=== PATIENT | female | born 1940 | race Caucasian/White ===

== ENCOUNTER 2020-09-24 15:21 | Inpatient (IN) | payer MEDICARE ==
[~2020-09-24] VITALS: Ht 152.4 cm; Wt 60.9 kg
--- NOTE | 2020-09-24 18:58 | PHYS DOC ---
General Adult EDM: Chief Complaint: MECHANICAL FALL HPI: HPI: 80-year-old female past medical history Parkinson's, hypothyroid, hypertension, chronic back pain presents for evaluation of lower back pain and frequent falls. Over the last 1 month patient has had increasingly number of falls. She is fallen 5 times. Patient states when she stands up her bilateral legs give out. Patient states she has bilateral numbness and tingling of her lower extremities. Patient lower back pain is located midline in the lumbar region. Patient does not have any saddle anesthesia or loss of bowel or bladder. Patient required assistance when transferring from wheelchair to bed. Review of Systems: Review of Systems: Constitutional: Denies fever or chills. [] Eyes: Denies change in visual acuity. [] HENT: Denies nasal congestion or sore throat. [] Respiratory: Denies cough or shortness of breath. [] Cardiovascular: Denies chest pain or edema. [] GI: Denies abdominal pain, nausea, vomiting, bloody stools or diarrhea. [] : Denies dysuria. [] Musculoskeletal: POSITIVE back pain Integument: Denies rash. [] Neurologic: Denies headache, focal weakness POSITIVE PARESTHESIA. [] Endocrine: Denies polyuria or polydipsia. [] Lymphatic: Denies swollen glands. [] Psychiatric: Denies depression or anxiety. [] Heart Score: C/O Chest Pain: N/A Risk Factors: Risk Factors: DM, Current or recent (<one month) smoker, HTN, HLP, family history of CAD, obesity. Risk Scores: Score 0 - 3: 2.5% MACE over next 6 weeks - Discharge Home Score 4 - 6: 20.3% MACE over next 6 weeks - Admit for Clinical Observation Score 7 - 10: 72.7% MACE over next 6 weeks - Early Invasive Strategies Physical Exam: PE: Constitutional: Well developed, well nourished, no acute distress, non-toxic appearance. [] HENT: Normocephalic, atraumatic, bilateral external ears normal, oropharynx moist, no oral exudates, nose normal. [] Eyes: PERRLA, EOMI, conjunctiva normal, no discharge. [] Neck: Normal range of motion, no tenderness, supple, no stridor. [] Cardiovascular:Heart rate regular rhythm, no murmur [] Lungs & Thorax: Bilateral breath sounds clear to auscultation [] Abdomen: Bowel sounds normal, soft, no tenderness, no masses, no pulsatile masses. [] Skin: Warm, dry, no erythema, no rash. [] Back: tenderness to palpation lumbar L3-L4 midline, no CVA tenderness. [] Extremities: No tenderness, no cyanosis, no clubbing, ROM intact, no edema. [] Neurologic: Alert and oriented X 3, normal motor function, normal sensory function, no focal deficits noted. [] Psychologic: Affect normal, judgement normal, mood normal. [] EKG: EKG: [] Radiology/Procedures: Radiology/Procedures: [] Impression: IMPRESSION: 1. Negative CT thoracic and lumbar spine for acute traumatic injury. 2. Spondylotic change in the lower lumbar spine. 3. Infrarenal abdominal aortic aneurysm measuring up to 3.5 cm. Course & Med Decision Making: Course & Med Decision Making Pertinent Labs and Imaging studies reviewed. (See chart for details) []Patient admitted to hospital due to the inability to ambulated. Further evaluation of back pain and parasthesia. Will consult PT/OT Gordy Disclaimer: Gordy Disclaimer: This electronic medical record was generated, in whole or in part, using a voice recognition dictation system. Departure Departure Impression: Primary Impression: Back pain Additional Impressions: Frequent falls Parkinson disease Inability to walk Disposition: 09 ADMITTED INPATIENT Referrals: NO PCP (PCP) ABRAM PERKINS DO Sep 24, 2020 18:58
[2020-09-24 19:50] LABS: BASO # 0.1 x10^3/uL (0.0-0.2); BASO % 1 % (0-3); EOS # 0.3 x10^3/uL (0.0-0.7); EOS % 4 % (0-3); HEMATOCRIT 41.1 % (36.0-47.0); HEMOGLOBIN 14.2 g/dL (12.0-15.5); LYMPH # 1.3 x10^3/uL (1.0-4.8); LYMPH % 21 % (24-48); MEAN CORPUSCULAR HEMOGLOBIN 33 pg (25-35); MEAN CORPUSCULAR HGB CONC 34 g/dL (31-37); MEAN CORPUSCULAR VOLUME 95 fL (79-100); MONO # 0.7 x10^3/uL (0.0-1.1); MONO % 11 % (0-9); NEUT # 3.9 x10^3/uL (1.8-7.7); NEUT % 62 % (31-73); PLATELET COUNT 203 x10^3/uL (140-400); RED BLOOD COUNT 4.34 x10^6/uL (3.50-5.40); RED CELL DISTRIBUTION WIDTH 13.4 % (11.5-14.5); WHITE BLOOD COUNT 6.2 x10^3/uL (4.0-11.0)
--- NOTE | 2020-09-24 19:54 | RAD ---
Exam: CT the thoracic and lumbar spine without contrast INDICATION: Back pain TECHNIQUE: Sequential axial images through the thoracic and lumbar spine obtained without IV contrast . Sagittal and coronal reformatted images were reconstructed from the axial data and reviewed. Exposure: One or more of the following in the visualized dose reduction techniques were utilized for this examination: 1. Automated exposure control 2. Adjustment of the MA and/or KV according to patient size 3. Use of iterative of reconstructive technique Comparisons: None FINDINGS: Thoracic spine: Vertebral body heights and alignment are well-maintained. Fracture to the thoracic spine is not identified. Laminectomy changes noted in the lower thoracic spi ne. Mild spondylotic change in the thoracic spine with degenerative disc disease. Visualized paraspinal soft tissues are unremarkable. Lumbar spine: There is an S-shaped scoliotic curvature of the lumbar spine. Vertebral body heights are well-maintai emiliano. Fracture to the lumbar spine is not identified. Aneurysmal dilatation of the infrarenal abdominal aorta measuring up to 3.5 cm in diameter. The level spondylotic change in the lumbar spine with degenerative disc disease greatest at L4-L5 and L5-S1. Bilateral facet arthropathy is also noted in the lumbar spine. IMPRESSION: 1. Negative CT thoracic and lumbar spine for acute traumatic injury. 2. Spondylotic change in the lower lumbar spine. 3. Infrarenal abdominal aortic aneurysm measuring up to 3.5 cm. Electronically signed by: Mulugeta Hampton MD (09/24/2020 7:51 PM) ASPEN
[2020-09-24 19:59] LABS: CALCIUM 9.2 mg/dL (8.5-10.1); CREATININE 0.9 mg/dL (0.6-1.0); GFR 60.1; POTASSIUM 3.6 mmol/L (3.5-5.1)
[2020-09-24 20:05] LABS: ALBUMIN 3.7 g/dL (3.4-5.0); ALBUMIN/GLOBULIN RATIO 1.2 (1.0-1.7); TOTAL BILIRUBIN 0.4 mg/dL (0.2-1.0); TOTAL PROTEIN 6.7 g/dL (6.4-8.2)
[2020-09-24] MEDS ORDERED: HYDROcodone/APAP 5/325MG 1 TAB TABLET PO ONE (20:15)
[2020-09-24 20:25] VITALS: BP 189/87
--- NOTE | 2020-09-24 20:25 | NUR ---
The patient, MENG LOJA, 80 y/o, F admitted by VALARIE LOTT III, DO, admitted for back pain, falls and Parkinson to room 440. Patient oriented to room, bed, call light and POC.Call light in reach and Patient instructed on doctor order for bedrest and need to call for assistance with toileting/needs. Patient was given written information regarding hospital policies, unit procedures and contact persons. See admission assessment/documentation. Valuables were checked and Security called for lock up of valuables.
--- NOTE | 2020-09-24 20:36 | EKG ---
[facility] [address] [place] [address] Test Date: 2020-09-24 Test Time: 19:51:32 Pat Name: MENG LOJA Department: Room: Gender: F Supervisor Of Research: : 1940 Requested By: ABRAM PERKINS Order Number: [id number] Reading MD: Measurements Intervals Simpson Rate: 68 P: 125 TN: 180 QRS: -14 QRSD: 74 T: 24 QT: 368 QTc: 391 Interpretive Statements SINUS RHYTHM LEFTWARD AXIS R-S TRANSITION ZONE IN V LEADS DISPLACED TO THE RIGHT NO SPECIFIC ECG ABNORMALITIES RI6.02 No previous ECG available for comparison
--- NOTE | 2020-09-24 21:12 | HP ---
ADMIT DATE: 09/24/2020 CHIEF COMPLAINT: Falls and back pain. HISTORY OF PRESENT ILLNESS: The patient is a pleasant elderly female who has had a history of 6 different back surgeries. She has had 3 on her lumbar spine and 3 on her cervical spine. Now, she is having some falls with back pain. She also has Parkinson's diagnosis, but insists that she really does not have much symptoms with that. I discussed the case with ER physician. We are going to admit the patient and consult Neurosurgery. PAST MEDICAL HISTORY: Parkinson's. Six back surgeries. ALLERGIES: None. FAMILY HISTORY: Diabetes. SOCIAL HISTORY: She does not drink, smoke or take drugs. She worked at a [employer]. MEDICATIONS: Reviewed, please refer to the MRAD. REVIEW OF SYSTEMS: GENERAL: No history of weight change, weakness or fevers. SKIN: No bruising, hair changes or rashes. EYES: No blurred, double or loss of vision. NOSE AND THROAT: No history of nosebleeds, hoarseness or sore throat. HEART: No history of palpitations, chest pain or shortness of breath on exertion. LUNGS: Denies cough, hemoptysis, wheezing or shortness of breath. GASTROINTESTINAL: Denies changes in appetite, nausea, vomiting, diarrhea or constipation. GENITOURINARY: No history of frequency, urgency, hesitancy or nocturia. NEUROLOGIC: She complains of back pain and falls. PSYCHIATRIC: No history of panic, anxiety or depression. ENDOCRINE: No history of heat or cold intolerance, polyuria or polydipsia. EXTREMITIES: Denies muscle weakness, joint pain, pain on walking or stiffness. PHYSICAL EXAMINATION: VITALS: Within normal limits and are stable. GENERAL: No apparent distress. Alert and oriented. HEENT: Normal cephalic atraumatic, external auditory canals are patent EYES: Extraocular muscles are intact, pupils are equally round and reactive to light and accommodation MUSCULOSKELETAL: Well developed, well nourished, good range of motion ENDOCRINE: No thyromegaly was palpated LYMPHATICS: No cervical chain or axillary nodes were noted HEMATOPOIETIC: No bruising NECK: Supple, no JVD, no thyromegaly was noted. LUNGS: Clear to auscultation in all lung frost without rhonchi or wheezing. HEART: RRR, S1, S2 present. Peripheral pulses intact, no obvious murmurs were noted. ABDOMEN: Soft, nontender. Positive bowel sounds no organomegaly, normal bowel sounds. EXTREMITIES: Without any cyanosis, clubbing, or edema. Pedal pulses intact, Homans sign is negative. NEUROLOGIC: Normal speech, normal tone. A and O x 3, moves all extremities, no obvious focal deficits. PSYCHIATRIC: Normal affect, normal mood. Stable. SKIN: No ulcerations or rashes, good skin turgor, no jaundice. VASCULAR: Good capillary refill, neurovascular bundle appears to be intact. LABORATORY DATA: White count 6. ASSESSMENT AND PLAN: Back pain and falls. 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 The patient has been admitted. We will consult Neurosurgery. Home meds. Deep venous thrombosis prophylaxis. Full code. IV fluids, p.r.n. pain meds. EDEN/LILLIAM/SARAH DR: EDEN/david TID: [id number]
[2020-09-24 23:40] VITALS: BP 206/98
[2020-09-25] MEDS ORDERED: LEVO75TA5 PO (00:02)
[2020-09-25] MEDS ORDERED: CARB1TAB22 PO (00:02)
[2020-09-25] MEDS ORDERED: ROPI0.5T4 PO (00:02)
[2020-09-25] MEDS ORDERED: GABA300C18 PO (00:02)
[2020-09-25] MEDS ORDERED: METO50TA4 PO (00:03)
[2020-09-25] MEDS ORDERED: LISI-130 PO (00:03)
[2020-09-25] MEDS ORDERED: MECO10005 PO (00:04)
[2020-09-25] MEDS ORDERED: FOLI0.8T5 PO (00:05)
[2020-09-25] MEDS ORDERED: KRIL1CAP23 PO (00:07)
[2020-09-25] MEDS ORDERED: CHOL500021 PO (00:07)
[2020-09-25] MEDS ORDERED: NAPR220C4 PO (00:08)
[2020-09-25] MEDS ORDERED: ASPI81TA59 PO (00:09)
--- NOTE | 2020-09-25 00:41 | NUR ---
Answering service called questioning if Dr. Gonzalez had called back. Dr. Gonzalez connected directly from answering service and order received for pain medication.
[2020-09-25] MEDS: HYDROcodone/APAP 5/325MG 1 TAB TABLET PO PRN ×2 (00:50→21:01)
--- NOTE | 2020-09-25 01:24 | NUR ---
Patient states she takes 2 gabapentin , alleve and 1 carv/levo at night and requested call to doctor for order. Call to Dr. Gonzalez and order received.
[2020-09-25] MEDS ORDERED: NAPROXEN 250 MG TABLET PO ONE (01:30)
[2020-09-25] MEDS ORDERED: CARBIDOPA/LEVODOPA 25/100MG TABLET PO ONE (01:30)
[2020-09-25] MEDS ORDERED: GABAPENTIN 300 MG CAPSULE. PO ONE (01:30)
[2020-09-25 03:10] VITALS: BP 136/66
[2020-09-25 07:00] VITALS: BP 168/84
[2020-09-25] MEDS ORDERED: GABAPENTIN 300 MG CAPSULE. PO PRN (10:45)
--- NOTE | 2020-09-25 10:52 | NUR ---
SW following. Discussed with RN, pt from home alone, room air, regular diet. Dr. Weinstein following. PT/OT ordered. SW requested COVID swab for possible placement. SW will continue to follow.
[2020-09-25 11:00] VITALS: BP 152/82
[2020-09-25] MEDS: ASPIRIN CHEWABLE 81 MG TABLET. PO SCH (11:15)
[2020-09-25] MEDS: LISINOPRIL 20 MG TABLET PO SCH (11:15)
[2020-09-25] MEDS: METOPROLOL SUCC 24HR ER 50 MG TAB.ER.24H. PO SCH (11:15)
[2020-09-25] MEDS: LEVOTHYROXINE 75 MCG TABLET PO SCH (11:15)
--- NOTE | 2020-09-25 13:26 | PDOC ---
[employer] PROGRESS NOTE Date of Service DOS: DATE: 09/25/20 TIME: 13:24 Chief Complaint Chief Complaint Back pain and fall History of Present Illness History of Present Illness The patient is a pleasant elderly female who has had a history of 6 different back surgeries. She has had 3 on her lumbar spine and 3 on her cervical spine. Now, she is having some falls with back pain. She also has Parkinson's diagnosis, but insists that she really does not have much symptoms with that. I discussed the case with ER physician. We are going to admit the patient and consult Neurosurgery. 09/25/20 Patient seen and examined to bedside. Says back pain is well controlled currently she just feels very unsteady on her feet. Awaiting neurosurgery consult. PT OT ordered. Patient may need rehab on discharge. Home meds resumed. Vitals/I&O Vitals/I&O: Vital Signs Date Time Temp Pulse Resp B/P (MAP) Pulse Ox O2 Delivery O2 Flow Rate FiO2 09/25/20 11:15 78 168/84 09/25/20 11:00 98.4 18 95 Room Air 98.4 I & O 09/24/20 09/24/20 09/25/20 15:00 23:00 07:00 Intake Total 640 ml Balance 640 ml Physical Exam General: Alert, Oriented X3, Cooperative Heart: Regular rate, Normal S1, Normal S2 Lungs: Clear Abdomen: Normal bowel sounds, Soft Extremities: No clubbing, No edema Skin: No rashes, No significant lesion Labs Labs: Laboratory Tests Test 09/24/20 19:37 White Blood Count 6.2 x10^3/uL (4.0-11.0) Red Blood Count 4.34 x10^6/uL (3.50-5.40) Hemoglobin 14.2 g/dL (12.0-15.5) Hematocrit 41.1 % (36.0-47.0) Mean Corpuscular Volume 95 fL (79-100) Mean Corpuscular Hemoglobin 33 pg (25-35) Mean Corpuscular Hemoglobin Concent 34 g/dL (31-37) Red Cell Distribution Width 13.4 % (11.5-14.5) Platelet Count 203 x10^3/uL (140-400) Neutrophils (%) (Auto) 62 % (31-73) Lymphocytes (%) (Auto) 21 % (24-48) Monocytes (%) (Auto) 11 % (0-9) Eosinophils (%) (Auto) 4 % (0-3) Basophils (%) (Auto) 1 % (0-3) Neutrophils # (Auto) 3.9 x10^3/uL (1.8-7.7) Lymphocytes # (Auto) 1.3 x10^3/uL (1.0-4.8) Monocytes # (Auto) 0.7 x10^3/uL (0.0-1.1) Eosinophils # (Auto) 0.3 x10^3/uL (0.0-0.7) Basophils # (Auto) 0.1 x10^3/uL (0.0-0.2) Sodium Level 143 mmol/L (136-145) Potassium Level 3.6 mmol/L (3.5-5.1) Chloride Level 104 mmol/L (98-107) Carbon Dioxide Level 32 mmol/L (21-32) Anion Gap 7 (6-14) Blood Urea Nitrogen 17 mg/dL (7-20) Creatinine 0.9 mg/dL (0.6-1.0) Estimated GFR (Cockcroft-Gault) 60.1 BUN/Creatinine Ratio 19 (6-20) Glucose Level 125 mg/dL (70-99) Calcium Level 9.2 mg/dL (8.5-10.1) Total Bilirubin 0.4 mg/dL (0.2-1.0) Aspartate Amino Transf (AST/SGOT) 14 U/L (15-37) Alanine Aminotransferase (ALT/SGPT) 10 U/L (14-59) Alkaline Phosphatase 68 U/L (46-116) Troponin I Quantitative < 0.017 ng/mL (0.000-0.055) Total Protein 6.7 g/dL (6.4-8.2) Albumin 3.7 g/dL (3.4-5.0) Albumin/Globulin Ratio 1.2 (1.0-1.7) Assessment and Plan Assessmemt and Plan Problems Medical Problems: (1) Inability to walk Status: Acute Back pain and falls. 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 The patient has been admitted. We will consult Neurosurgery. Home meds. Deep venous thrombosis prophylaxis. Full code. IV fluids, p.r.n. pain meds Comment Review of Relevant I have reviewed the following items elizabeth (where applicable) has been applied. Medications: Current Medications Medications (Trade) Dose Ordered Sig/Sury Route PRN Reason Start Time Stop Time Status Last Admin Dose Admin Acetaminophen/ Hydrocodone Bitart (Lortab 5/325) 1 tab 1X ONCE PO 09/24/20 20:15 09/24/20 20:16 DC 09/24/20 20:23 Acetaminophen/ Hydrocodone Bitart (Lortab 5/325) 1 tab PRN Q4HRS PRN PO PAIN 09/25/20 00:45 09/25/20 00:50 Naproxen (Naprosyn) 250 mg 1X ONCE PO 09/25/20 01:30 09/25/20 01:31 DC 09/25/20 01:34 Gabapentin (Neurontin) 600 mg 1X ONCE PO 09/25/20 01:30 09/25/20 01:31 DC 09/25/20 01:34 Carbidopa/Levodopa (Sinemet 25/100) 1 tab 1X ONCE PO 09/25/20 01:30 09/25/20 01:31 DC 09/25/20 01:34 Aspirin (Aspirin Chewable) 81 mg DAILY PO 09/25/20 11:00 09/25/20 11:15 Gabapentin (Neurontin) 300 mg 5XDAY PRN PO neuropathy 09/25/20 10:45 09/25/20 11:15 Levothyroxine Sodium (Synthroid) 75 mcg DAILY06 PO 09/25/20 11:00 09/25/20 11:15 Lisinopril (Prinivil) 40 mg DAILY PO 09/25/20 11:00 09/25/20 11:15 Metoprolol Succinate (Toprol Xl) 50 mg DAILY PO 09/25/20 11:00 09/25/20 11:15 Justifications for Admission Other Justification JANE PHILLIPS MD Sep 25, 2020 13:26
[2020-09-25] MEDS: rOPINIRole 0.25 MG TABLET. PO SCH ×2 (13:56→21:01)
[2020-09-25] MEDS: CARBIDOPA/LEVODOPA 25/100MG TABLET PO SCH ×3 (13:56→21:01)
[2020-09-25 15:00] VITALS: BP 150/68
--- NOTE | 2020-09-25 17:41 | PDOC ---
Provider Note Date of Service: DATE: 09/25/20 TIME: 17:36 Provider Note Patient seen and examined consulted for back pain, falls 6 previous spine surgeries, most recently in 1999 at [facility], cervical, thoracic and lumbar surgeries she reports that her legs give out when she tries to walk, she denies upper extremity involvement the current problem began less than 1 month ago on exam, no focal weakness, strength 4/5 in LE, reflexes brisk, sensation intact reviewed thoracic and lumbar CT will obtain lumbar and thoracic MRI Justifications for Admission Other Justification BRI RODRIGUEZ MD Sep 25, 2020 17:41
[2020-09-25] MEDS: NAPROXEN 250 MG TABLET PO SCH (18:02)
[2020-09-25 19:00] VITALS: BP 146/62
[2020-09-25] MEDS: GABAPENTIN 300 MG CAPSULE. PO SCH (21:01)
[2020-09-25] MEDS: NICOTINE 21MG PATCH. TD PRN (21:04)
[2020-09-25 22:52] VITALS: BP 155/61
[2020-09-26 02:59] VITALS: BP 130/62
[2020-09-26] MEDS: CARBIDOPA/LEVODOPA 25/100MG TABLET PO SCH ×5 (06:04→20:45)
[2020-09-26] MEDS: LEVOTHYROXINE 75 MCG TABLET PO SCH (06:04)
[2020-09-26] MEDS: GABAPENTIN 300 MG CAPSULE. PO PRN ×3 (06:06→17:12)
[2020-09-26 06:19] VITALS: BP 114/88
--- NOTE | 2020-09-26 06:31 | NUR ---
Patient requested schedule change to match home administration times for Carbidopa/Levodopa tablet(0300,0700,1200,1700,2200); pharmacist notified and changes successful. 0700 Carbidopa/Levodopa scheduled for this AM non-administered as dose already administered at 0605.
[2020-09-26] MEDS: LISINOPRIL 20 MG TABLET PO SCH (09:39)
[2020-09-26] MEDS: rOPINIRole 0.25 MG TABLET. PO SCH ×3 (09:40→20:43)
[2020-09-26] MEDS: NAPROXEN 250 MG TABLET PO SCH ×2 (09:40→17:12)
[2020-09-26] MEDS: METOPROLOL SUCC 24HR ER 50 MG TAB.ER.24H. PO SCH (09:40)
[2020-09-26] MEDS: ASPIRIN CHEWABLE 81 MG TABLET. PO SCH (09:40)
[2020-09-26] MEDS: NICOTINE 21MG PATCH. TD PRN (09:41)
--- NOTE | 2020-09-26 10:48 | CONS ---
DATE OF CONSULTATION: 09/26/2020 REASON FOR CONSULTATION: I saw her at the request of Dr. Gonzalez for rehab evaluation. HISTORY OF PRESENT ILLNESS: This is an 80-year-old female with 6 surgeries on her neck and back, 3 on the lumbar spine, and 3 on cervical and thoracic area, also with a diagnosis of Parkinson's disease without much symptoms from Parkinson's disease. The patient had left back surgery done a few years ago about [address] Prakash at [facility]. The patient was seen by another surgeon since then and they felt and stated they could not do anything much. She moved to [facility] where her care provider, her nephew lives close by. The patient usually walks using a roller walker and takes care of her house including garden. She fell first on 09/13 while trying to get out of the car and she sprained her right hip and left ankle, but since then she has been using a roller walker and walking. Before that she did not even use a roller walker all the time. Again, she fell on 09/22. Initial fall is on 09/13, second fall on 09/21, third fall and afterwards she fell several times on 09/22. Since then, she is having difficulty to stand up and walk as her legs give away. She feels wobbly sensation and numbness in her feet. She denies any trouble with her bowel or bladder control. The patient admits minimal back pain at present time. The patient had family history of diabetes mellitus. ALLERGIES: She is not known allergic to any medication. PHYSICAL EXAMINATION: NEUROLOGIC: Today revealed an elderly female. She is alert, oriented to time, place, person and circumstance, follows commands appropriately. Moves all 4 extremities voluntarily where she had 4/5 to 4+/5 grade muscle strength. Deep tendon reflexes are brisk in her knees and ankles. She had pain free range of motion of all 4 extremity joints. She had minimal tenderness to palpation over left sacroiliac joint area and straight leg raising test is negative bilaterally. No significant tenderness to palpation. No cervical, thoracic or lumbar spine or adjoining paraspinal muscles or over trochanteric bursa area. The patient is independent with bed mobility and she requires standby assistance for transfers and she feels like her legs are wobbly and gives away while trying to walk. She made a few steps using a wide-based gait, taking small steps with may cueing on level surface. She states that she is mainly putting weight on her hands. Her skin is intact at this time. She seemed to have equal perception of touch and pinprick sensation bilaterally. 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 RECOMMENDATIONS: Agree with the plans for MRI scan and await Dr. Weinstein's decision about decompression laminectomy to help with her spinal stenosis as apparently before the fall on 09/21 and 09/22. She had been walking without any significant difficulty. Dr. Gonzalez, I appreciate asking me to participate in the care of this interesting patient. I will be glad to see her for followup with you on as needed basis. HERNÁN DR: Sanju TID: [id number] GOSIA
[2020-09-26 11:00] VITALS: BP 121/61
--- NOTE | 2020-09-26 12:48 | NUR ---
SW following. Discussed with RN, pt from home alone, room air. Therapy recommending SNF. SW met with pt, pt declining SNF at this time, she wants to go home at discharge with home health. Pt identified her cousin as support for her at home. Tiff Perez RN notified of referral. RN notified. CL will continue to follow. Addendum: 09/26/20 at 1515 by NAYELI SMALLWOOD Tiff Perez RN met with pt, pt does not have PCP, next appointment in October. Pt aware she cannot have home health with no PCP - pt will have PCP arrange home health after appointment.
--- NOTE | 2020-09-26 13:48 | PDOC ---
[employer] PROGRESS NOTE Date of Service DOS: DATE: 09/26/20 TIME: 13:46 Chief Complaint Chief Complaint Back pain and fall History of Present Illness History of Present Illness The patient is a pleasant elderly female who has had a history of 6 different back surgeries. She has had 3 on her lumbar spine and 3 on her cervical spine. Now, she is having some falls with back pain. She also has Parkinson's diagnosis, but insists that she really does not have much symptoms with that. I discussed the case with ER physician. We are going to admit the patient and consult Neurosurgery. 09/25/20 Patient seen and examined to bedside. Says back pain is well controlled currently she just feels very unsteady on her feet. Awaiting neurosurgery consult. PT OT ordered. Patient may need rehab on discharge. Home meds resumed. 09/26/20 Patient seen and examined at bedside. No major complaints this morning. Neurosurgery recommending MRI evaluation, patient agreeable. PT OT ordered. Plan of care discussed with bedside nurse. Vitals/I&O Vitals/I&O: Vital Signs Date Time Temp Pulse Resp B/P (MAP) Pulse Ox O2 Delivery O2 Flow Rate FiO2 09/26/20 11:00 97.7 72 18 121/61 (81) 94 Room Air 97.7 I & O 09/25/20 09/25/20 09/26/20 15:00 23:00 07:00 Intake Total 240 ml 200 ml Balance 240 ml 200 ml Physical Exam General: Alert, Oriented X3, Cooperative Heart: Regular rate, Normal S1, Normal S2 Lungs: Clear Abdomen: Normal bowel sounds, Soft Extremities: No clubbing, No edema Skin: No rashes, No significant lesion Assessment and Plan Assessmemt and Plan Problems Medical Problems: (1) Inability to walk Status: Acute Back pain and falls. 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 The patient has been admitted. We will consult Neurosurgery. Home meds. Deep venous thrombosis prophylaxis. Full code. IV fluids, p.r.n. pain meds MRIs ordered PT OT Dispo pending MRI results and neurosurgery recommendation. Comment Review of Relevant I have reviewed the following items elizabeth (where applicable) has been applied. Medications: Current Medications Medications (Trade) Dose Ordered Sig/Sury Route PRN Reason Start Time Stop Time Status Last Admin Dose Admin Carbidopa/Levodopa (Sinemet 25/100) 1 tab 5XDAY PO 09/25/20 14:00 09/26/20 06:16 DC 09/26/20 06:04 Ropinirole HCl (Requip) 0.5 mg TID PO 09/25/20 14:00 09/26/20 09:40 Gabapentin (Neurontin) 600 mg QHS PO 09/25/20 21:00 09/25/20 21:01 Naproxen (Naprosyn) 250 mg BIDWMEALS PO 09/25/20 17:00 09/26/20 09:40 Nicotine (Nicoderm Cq 21mg) 1 patch PRN DAILY PRN TD SMOKING CESSATION 09/25/20 18:30 09/26/20 09:41 Carbidopa/Levodopa (Sinemet 25/100) 1 tab 0300,0700,1200,1700,2100 PO 09/26/20 07:00 09/26/20 12:06 Justifications for Admission Other Justification JANE PHILLIPS MD Sep 26, 2020 13:48
--- NOTE | 2020-09-26 14:43 | PDOC ---
PROGRESS NOTES Date of Service DATE: 09/26/20 TIME: 14:41 Subjective Subjective no new complaints back pain, legs feel weak when she gets up to walk Objective Objective Vital Signs Date Time Temp Pulse Resp B/P (MAP) Pulse Ox O2 Delivery O2 Flow Rate FiO2 09/26/20 11:00 97.7 72 18 121/61 (81) 94 Room Air 97.7 Intake and Output 09/26/20 07:00 Intake Total 440 ml Balance 440 ml Intake Oral 440 ml # Voids 5 # Bowel Movements 1 Physical Exam Neuro: Other (no change in neuro exam) Assessment Assessment Problems Medical Problems: (1) Inability to walk Status: Acute Plan Plan of Care thoracic and lumbar MRI pending will follow Comment Review of Relevant I have reviewed the following items elizabeth (where applicable) has been applied. Labs Laboratory Tests Test 09/24/20 19:37 White Blood Count 6.2 x10^3/uL (4.0-11.0) Red Blood Count 4.34 x10^6/uL (3.50-5.40) Hemoglobin 14.2 g/dL (12.0-15.5) Hematocrit 41.1 % (36.0-47.0) Mean Corpuscular Volume 95 fL (79-100) Mean Corpuscular Hemoglobin 33 pg (25-35) Mean Corpuscular Hemoglobin Concent 34 g/dL (31-37) Red Cell Distribution Width 13.4 % (11.5-14.5) Platelet Count 203 x10^3/uL (140-400) Neutrophils (%) (Auto) 62 % (31-73) Lymphocytes (%) (Auto) 21 % (24-48) Monocytes (%) (Auto) 11 % (0-9) Eosinophils (%) (Auto) 4 % (0-3) Basophils (%) (Auto) 1 % (0-3) Neutrophils # (Auto) 3.9 x10^3/uL (1.8-7.7) Lymphocytes # (Auto) 1.3 x10^3/uL (1.0-4.8) Monocytes # (Auto) 0.7 x10^3/uL (0.0-1.1) Eosinophils # (Auto) 0.3 x10^3/uL (0.0-0.7) Basophils # (Auto) 0.1 x10^3/uL (0.0-0.2) Sodium Level 143 mmol/L (136-145) Potassium Level 3.6 mmol/L (3.5-5.1) Chloride Level 104 mmol/L (98-107) Carbon Dioxide Level 32 mmol/L (21-32) Anion Gap 7 (6-14) Blood Urea Nitrogen 17 mg/dL (7-20) Creatinine 0.9 mg/dL (0.6-1.0) Estimated GFR (Cockcroft-Gault) 60.1 BUN/Creatinine Ratio 19 (6-20) Glucose Level 125 mg/dL (70-99) Calcium Level 9.2 mg/dL (8.5-10.1) Total Bilirubin 0.4 mg/dL (0.2-1.0) Aspartate Amino Transf (AST/SGOT) 14 U/L (15-37) Alanine Aminotransferase (ALT/SGPT) 10 U/L (14-59) Alkaline Phosphatase 68 U/L (46-116) Troponin I Quantitative < 0.017 ng/mL (0.000-0.055) Total Protein 6.7 g/dL (6.4-8.2) Albumin 3.7 g/dL (3.4-5.0) Albumin/Globulin Ratio 1.2 (1.0-1.7) Medications Current Medications Acetaminophen/ Hydrocodone Bitart (Lortab 5/325) 1 tab 1X ONCE PO Last administered on 09/24/20at 20:23; Start 09/24/20 at 20:15; Stop 09/24/20 at 20:16; Status DC Acetaminophen/ Hydrocodone Bitart (Lortab 5/325) 1 tab PRN Q4HRS PRN PO PAIN Last administered on 09/25/20at 21:01; Start 09/25/20 at 00:45 Naproxen (Naprosyn) 250 mg 1X ONCE PO Last administered on 09/25/20at 01:34; Start 09/25/20 at 01:30; Stop 09/25/20 at 01:31; Status DC Gabapentin (Neurontin) 600 mg 1X ONCE PO Last administered on 09/25/20at 01:34; Start 09/25/20 at 01:30; Stop 09/25/20 at 01:31; Status DC Carbidopa/Levodopa (Sinemet 25/100) 1 tab 1X ONCE PO Last administered on 09/25/20 01:34; Start 09/25/20 at 01:30; Stop 09/25/20 at 01:31; Status DC Aspirin (Aspirin Chewable) 81 mg DAILY PO Last administered on 09/26/20 09:40; Start 09/25/20 at 11:00 Carbidopa/Levodopa (Sinemet 25/100) 1 tab 5XDAY PO Last administered on 09/26/20at 06:04; Start 09/25/20 at 14:00; Stop 09/26/20 at 06:16; Status DC Gabapentin (Neurontin) 300 mg 5XDAY PRN PO neuropathy Last administered on 09/25/20 11:15; Start 09/25/20 at 10:45; Stop 09/25/20 at 13:29; Status DC Levothyroxine Sodium (Synthroid) 75 mcg DAILY06 PO Last administered on 09/26/20 06:04; Start 09/25/20 at 11:00 Lisinopril (Prinivil) 40 mg DAILY PO Last administered on 09/26/20 09:39; Start 09/25/20 at 11:00 Metoprolol Succinate (Toprol Xl) 50 mg DAILY PO Last administered on 09/26/20 09:40; Start 09/25/20 at 11:00 Ropinirole HCl (Requip) 0.5 mg TID PO Last administered on 09/26/20 09:40; Start 09/25/20 at 14:00 Gabapentin (Neurontin) 300 mg PRN Q6HRS PRN PO NEUROPATHY SYMPTOMS Last administered on 09/26/20 12:06; Start 09/25/20 at 13:30 Gabapentin (Neurontin) 600 mg QHS PO Last administered on 09/25/20 21:01; Start 09/25/20 at 21:00 Naproxen (Naprosyn) 250 mg BIDWMEALS PO Last administered on 09/26/20 09:40; Start 09/25/20 at 17:00 Nicotine (Nicoderm Cq 21mg) 1 patch PRN DAILY PRN TD SMOKING CESSATION Last administered on 09/26/20 09:41; Start 09/25/20 at 18:30 Carbidopa/Levodopa (Sinemet 25/100) 1 tab 0300,0700,1200,1700,2100 PO Last administered on 09/26/20at 12:06; Start 09/26/20 at 07:00 Active Scripts Active Reported Children's Aspirin (Aspirin) 81 Mg Tab.chew 1 Tab PO DAILY 30 Days Aleve (Naproxen Sodium) 220 Mg Capsule 220 Mg PO BID D3-50 (Cholecalciferol (Vitamin D3)) 50,000 Unit Capsule 2,000 Unit PO DAILY Megared [place]-3 Krill Oil Sfgl (Krill/Om-3/Dha/Epa/Phospho/Ast) 1 Each Capsule 1 Cap PO DAILY 30 Days Folic Acid 0.8 Mg Tablet 0.8 Mg PO DAILY B12 Active (Mecobalamin) 1,000 Mcg Tab.chew 500 Mcg PO DAILY Toprol XL (Metoprolol Succinate) 50 Mg Tab.er.24h 50 Mg PO DAILY Lisinopril 40 Mg Tablet 1 Tab PO DAILY Levothyroxine Sodium 75 Mcg Tablet 1 Tab PO DAILY Gabapentin (Gabapentin) 300 Mg Capsule 300 Mg PO 5XDAY PRN Carbidopa-Levodopa 25-100 Tab (Carbidopa/Levodopa) 1 Each Tablet 1 Tab PO 5XDAY 30 Days Ropinirole Hcl 0.5 Mg Tablet 0.5 Mg PO TID Vitals/I & O Vital Sign - Last 24 Hours 09/25/20 09/25/20 09/25/20 09/25/20 15:00 19:00 20:00 21:01 Temp 98.1 97.5 98.1 97.5 Pulse 78 81 Resp 18 18 16 B/P (MAP) 150/68 (95) 146/62 (90) Pulse Ox 93 91 91 O2 Delivery Room Air Room Air Room Air Room Air 09/25/20 09/25/20 09/26/20 09/26/20 21:31 22:52 02:59 06:19 Temp 97.9 97.6 97.9 97.9 97.6 97.9 Pulse 69 79 79 Resp 14 18 18 16 B/P (MAP) 155/61 (92) 130/62 (84) 114/88 (97) Pulse Ox 91 90 92 91 O2 Delivery Room Air Room Air Room Air Room Air 09/26/20 09/26/20 09/26/20 09/26/20 07:50 09:39 09:40 11:00 Temp 97.7 97.7 Pulse 79 79 72 Resp 18 B/P (MAP) 114/88 114/88 121/61 (81) Pulse Ox 94 O2 Delivery Room Air Room Air Intake and Output 09/25/20 09/25/20 09/26/20 15:00 23:00 07:00 Intake Total 240 ml 200 ml Balance 240 ml 200 ml Justifications for Admission Other Justification YULISSA FOFANA PATIENT ACCESS ASSOCIATE Sep 26, 2020 14:43
[2020-09-26 15:00] VITALS: BP 131/74
[2020-09-26] MEDS: HYDROcodone/APAP 5/325MG 1 TAB TABLET PO PRN ×2 (17:35→23:30)
--- NOTE | 2020-09-26 17:54 | RAD ---
MRI THORACIC SPINE WO, MR LUMBAR SPINE WO -[id number] Date: 09/26/2020 3:34 PM Indication: lower extremity weakness, back pain Comparison: CT 09/24/2020. Technique: Multi-planar multi-weighted magnetic resonance imaging of the thoracic and lumbar spine wa s performed without intravenous contrast using the standard lumbar spine protocol. FINDINGS: S-shaped thoracolumbar curvature. No acute fracture. Advanced multilevel degenerative disc desiccatio n and disc height loss. Multilevel sclerotic degenerative endplate changes. Abnormal ill-defined spinal cord signal at T9-T10. Additional abnormal spinal cord signal with volume loss at T10-11 consistent with myelomalacia. Prior posterior decompression at T10-11. The conus term inates at a normal level. No clumping of intrathecal nerve roots. Infrarenal abdominal aortic aneurysm measuring up to 4.5 cm. Thoracic: T1-2: Mild facet arthropathy. No spinal canal stenosis. Moderate right neural foraminal narrowing. T2-3: Disc bulge. Mild facet arthropathy. Severe right and moderate left neural foraminal narrowing. Mild spinal canal stenosis. T3-4: Disc bulge. Mild right facet arthropathy. Moderate right and mild left neural foraminal narrowi ng. Mild spinal canal stenosis. T4-5: Disc bulge. Moderate facet arthropathy. Moderate right neural foraminal narrowing. No spinal ca nal stenosis T5-6: Mild right facet arthropathy. No spinal canal stenosis or neural foraminal narrowing. T6-7: Mild left facet arthropathy. Mild left neural foraminal narrowing. No spinal canal stenosis. T7-8: Disc bulge. No spinal canal stenosis. Mild left neural foraminal narrowing. T8-9: Disc bulge. Mild facet arthropathy. Ligamentum flavum thickening. Moderate to severe spinal can al stenosis with AP dimension of 6 mm. Mild bilateral neural foraminal narrowing. T9-10: Disc bulge. Moderate facet arthropathy. Ligamental flavum thickening. Severe spinal canal sten osis with AP dimension of 5 mm. Moderate bilateral neural foraminal narrowing. T10-11: Posterior decompression. No spinal canal stenosis. Mild right and moderate left facet arthrop athy. Mild right and moderate left neural foraminal narrowing. T11-12: Disc bulge. Moderate facet arthropathy. Mild spinal canal stenosis. Mild neural foraminal jelly rowing. Lumbar: T12-L1: Disc bulge. Severe right and moderate left facet arthropathy. Mild to moderate spinal canal s tenosis. Moderate right and mild left neural foraminal narrowing. L1-L2: Disc bulge. Moderate facet arthropathy. Moderate right and mild left neural foraminal narrowin g. Mild spinal canal stenosis. L2-L3: Disc bulge. Moderate facet arthropathy. Mild spinal stenosis. Mild to moderate bilateral neura l foraminal narrowing. L3-L4: Posterior decompression. Moderate to severe facet arthropathy. No significant spinal stenosis. Mild lateral recess narrowing. Mild bilateral neural foraminal narrowing. L4-L5: Posterior decompression. Severe facet arthropathy. Moderate spinal stenosis and left greater t [place] right lateral recess narrowing. Moderate bilateral neural foraminal narrowing. L5-S1: Disc bulge. Severe facet arthropathy. Moderate spinal stenosis. Severe bilateral neural forami nal narrowing. IMPRESSION: 1. Advanced thoracolumbar spondylosis, detailed level by level above. Of note, there is severe spinal canal stenosis at T9-T10 with abnormal spinal cord signal, likely edema. Neurosurgical consultation is recommended. 2. Infrarenal abdominal aortic aneurysm measuring 4.5 cm. FOR INTERNAL CODING PURPOSES Critical result: Findings and recommendations discussed with the patient's nurse at 09/26/2020 5:49 PM. RESULT CODE: (C) Electronically signed by: Nicanor Ventura MD (09/26/2020 5:51 PM) KATER[place]
[2020-09-26 19:00] VITALS: BP 185/88
[2020-09-26] MEDS: GABAPENTIN 300 MG CAPSULE. PO SCH (20:43)
[2020-09-26 23:00] VITALS: BP 170/73
[2020-09-26] MEDS ORDERED: MORPHINE SULFATE 2 MG/ML INJ. IVP PRN (23:45)
[2020-09-27] VITALS (7 sets, daily range): BP systolic 133–199; BP diastolic 53–81
[2020-09-27] MEDS: CARBIDOPA/LEVODOPA 25/100MG TABLET PO SCH ×5 (02:10→21:12)
[2020-09-27] MEDS: LEVOTHYROXINE 75 MCG TABLET PO SCH (05:43)
[2020-09-27] MEDS: METOPROLOL SUCC 24HR ER 50 MG TAB.ER.24H. PO SCH (07:56)
[2020-09-27] MEDS: ASPIRIN CHEWABLE 81 MG TABLET. PO SCH (07:56)
[2020-09-27] MEDS: rOPINIRole 0.25 MG TABLET. PO SCH ×3 (07:56→21:12)
[2020-09-27] MEDS: NAPROXEN 250 MG TABLET PO SCH ×2 (07:57→17:15)
[2020-09-27] MEDS: LISINOPRIL 20 MG TABLET PO SCH (07:57)
--- NOTE | 2020-09-27 09:31 | PDOC ---
PROGRESS NOTES Date of Service DATE: 09/27/20 TIME: 09:23 Subjective Subjective No new complaints. Objective Objective Vital Signs Date Time Temp Pulse Resp B/P (MAP) Pulse Ox O2 Delivery O2 Flow Rate FiO2 09/27/20 07:57 69 162/65 09/27/20 07:00 97.6 18 99 Nasal Cannula 2.0 97.6 Intake and Output 09/27/20 07:00 # Voids 4 Physical Exam Physical Exam She is alert,supine in bed and continues with lower extremity [id number] and ataxia,making her unsafe to go home. 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 That could account for her lower extremity [id number] and ataxia. As she has been walking without any probelms prior to her fall on 09/21/2020,she may be a candidate for decompression laminectomy. If no surgery is on plans,to try her on medrol dose pack and transfer to acute rehab unit for continued care when medically stable. Assessment Assessment Problems Medical Problems: (1) Inability to walk Status: Acute Plan Plan of Care To start her on medrol dose pack and transfer to acute rehab if no plans for decompression laminectomy. Comment Review of Relevant I have reviewed the following items elizabeth (where applicable) has been applied. Medications Current Medications Acetaminophen/ Hydrocodone Bitart (Lortab 5/325) 1 tab 1X ONCE PO Last adminis tered on 09/24/20at 20:23; Start 09/24/20 at 20:15; Stop 09/24/20 at 20:16; Status DC Acetaminophen/ Hydrocodone Bitart (Lortab 5/325) 1 tab PRN Q4HRS PRN PO PAIN Last administered on 09/26/20at 23:30; Start 09/25/20 at 00:45 Naproxen (Naprosyn) 250 mg 1X ONCE PO Last administered on 09/25/20at 01:34; Start 09/25/20 at 01:30; Stop 09/25/20 at 01:31; Status DC Gabapentin (Neurontin) 600 mg 1X ONCE PO Last administered on 09/25/20at 01:34; Start 09/25/20 at 01:30; Stop 09/25/20 at 01:31; Status DC Carbidopa/Levodopa (Sinemet 25/100) 1 tab 1X ONCE PO Last administered on 09/25/20at 01:34; Start 09/25/20 at 01:30; Stop 09/25/20 at 01:31; Status DC Aspirin (Aspirin Chewable) 81 mg DAILY PO Last administered on 09/27/20at 07:56; Start 09/25/20 at 11:00 Carbidopa/Levodopa (Sinemet 25/100) 1 tab 5XDAY PO Last administered on 09/26/20at 06:04; Start 09/25/20 at 14:00; Stop 09/26/20 at 06:16; Status DC Gabapentin (Neurontin) 300 mg 5XDAY PRN PO neuropathy Last administered on 09/25/20 11:15; Start 09/25/20 at 10:45; Stop 09/25/20 at 13:29; Status DC Levothyroxine Sodium (Synthroid) 75 mcg DAILY06 PO Last administered on 09/27/20 05:43; Start 09/25/20 at 11:00 Lisinopril (Prinivil) 40 mg DAILY PO Last administered on 09/27/20 07:57; Start 09/25/20 at 11:00 Metoprolol Succinate (Toprol Xl) 50 mg DAILY PO Last administered on 09/27/20 07:56; Start 09/25/20 at 11:00 Ropinirole HCl (Requip) 0.5 mg TID PO Last administered on 09/27/20 07:56; Start 09/25/20 at 14:00 Gabapentin (Neurontin) 300 mg PRN Q6HRS PRN PO NEUROPATHY SYMPTOMS Last administered on 09/26/20 17:12; Start 09/25/20 at 13:30 Gabapentin (Neurontin) 600 mg QHS PO Last administered on 09/26/20 20:43; Start 09/25/20 at 21:00 Naproxen (Naprosyn) 250 mg BIDWMEALS PO Last administered on 09/27/20 07:57; Start 09/25/20 at 17:00 Nicotine (Nicoderm Cq 21mg) 1 patch PRN DAILY PRN TD SMOKING CESSATION Last administered on 09/26/20 09:41; Start 09/25/20 at 18:30 Carbidopa/Levodopa (Sinemet 25/100) 1 tab 0300,0700,1200,1700,2100 PO Last administered on 09/27/20at 07:53; Start 09/26/20 at 07:00 Morphine Sulfate (Morphine Sulfate) 2 mg PRN Q2HR PRN IVP SEVERE PAIN 7-10 Last administered on 09/27/20at 02:17; Start 09/26/20 at 23:45 Hydralazine HCl (Apresoline) 10 mg PRN Q8HRS PRN PO SBP greater than 160; Start 09/26/20 at 23:45 Active Scripts Active Reported Children's Aspirin (Aspirin) 81 Mg Tab.chew 1 Tab PO DAILY 30 Days Aleve (Naproxen Sodium) 220 Mg Capsule 220 Mg PO BID D3-50 (Cholecalciferol (Vitamin D3)) 50,000 Unit Capsule 2,000 Unit PO DAILY Megared [place]-3 Krill Oil Sfgl (Krill/Om-3/Dha/Epa/Phospho/Ast) 1 Each Capsule 1 Cap PO DAILY 30 Days Folic Acid 0.8 Mg Tablet 0.8 Mg PO DAILY B12 Active (Mecobalamin) 1,000 Mcg Tab.chew 500 Mcg PO DAILY Toprol XL (Metoprolol Succinate) 50 Mg Tab.er.24h 50 Mg PO DAILY Lisinopril 40 Mg Tablet 1 Tab PO DAILY Levothyroxine Sodium 75 Mcg Tablet 1 Tab PO DAILY Gabapentin (Gabapentin) 300 Mg Capsule 300 Mg PO 5XDAY PRN Carbidopa-Levodopa 25-100 Tab (Carbidopa/Levodopa) 1 Each Tablet 1 Tab PO 5XDAY 30 Days Ropinirole Hcl 0.5 Mg Tablet 0.5 Mg PO TID Vitals/I & O Vital Sign - Last 24 Hours 09/26/20 09/26/20 09/26/20 09/26/20 09:39 09:40 11:00 15:00 Temp 97.7 97.9 97.7 97.9 Pulse 79 79 72 79 Resp 18 18 B/P (MAP) 114/88 114/88 121/61 (81) 131/74 (93) Pulse Ox 94 93 O2 Delivery Room Air Room Air 09/26/20 09/26/20 09/26/20 09/26/20 17:35 18:07 19:00 20:15 Temp 97.9 97.9 Pulse 67 Resp 18 B/P (MAP) 185/88 (120) Pulse Ox 95 O2 Delivery Room Air Room Air Room Air Room Air 09/26/20 09/26/20 09/27/20 09/27/20 23:00 23:30 00:30 02:17 Temp 97.7 97.7 Pulse 76 Resp 18 16 16 16 B/P (MAP) 170/73 (105) Pulse Ox 93 92 O2 Delivery Nasal Cannula Room Air Room Air Room Air O2 Flow Rate 2.0 09/27/20 09/27/20 09/27/20 09/27/20 03:00 03:06 07:00 07:56 Temp 98.0 97.6 98.0 97.6 Pulse 72 70 69 Resp 18 16 18 B/P (MAP) 151/53 (85) 140/61 (87) 162/65 Pulse Ox 96 99 O2 Delivery Nasal Cannula Room Air Nasal Cannula O2 Flow Rate 2.0 2.0 09/27/20 07:57 Pulse 69 B/P (MAP) 162/65 Justifications for Admission Other Justification FELIX MATUTE MD Sep 27, 2020 09:31
--- NOTE | 2020-09-27 12:45 | PDOC ---
[facility] PROGRESS NOTE Date of Service DOS: DATE: 09/27/20 TIME: 12:44 Chief Complaint Chief Complaint Back pain and fall History of Present Illness History of Present Illness The patient is a pleasant elderly female who has had a history of 6 different back surgeries. She has had 3 on her lumbar spine and 3 on her cervical spine. Now, she is having some falls with back pain. She also has Parkinson's diagnosis, but insists that she really does not have much symptoms with that. I discussed the case with ER physician. We are going to admit the patient and consult Neurosurgery. 09/25/20 Patient seen and examined to bedside. Says back pain is well controlled currently she just feels very unsteady on her feet. Awaiting neurosurgery consult. PT OT ordered. Patient may need rehab on discharge. Home meds resumed. 09/26/20 Patient seen and examined at bedside. No major complaints this morning. Neurosurgery recommending MRI evaluation, patient agreeable. PT OT ordered. Plan of care discussed with bedside nurse. 09/27/20 Patient seen and examined at bedside. MRI yesterday showing severe spinal stenosis. Patient with no major complaints this morning. Awaiting neurosurgery recommendations. Plan of care discussed with bedside nurse Vitals/I&O Vitals/I&O: Vital Signs Date Time Temp Pulse Resp B/P (MAP) Pulse Ox O2 Delivery O2 Flow Rate FiO2 09/27/20 11:00 97.8 62 18 133/69 (90) 96 Nasal Cannula 2.0 97.8 Physical Exam General: Alert, Oriented X3, Cooperative Heart: Regular rate, Normal S1, Normal S2 Lungs: Clear Abdomen: Normal bowel sounds, Soft Extremities: No clubbing, No edema Skin: No rashes, No significant lesion Review of Systems Review of Systems: No acute complaints Assessment and Plan Assessmemt and Plan Problems Medical Problems: (1) Inability to walk Status: Acute Back pain and falls. 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 The patient has been admitted. We will consult Neurosurgery. Home meds. Deep venous thrombosis prophylaxis. Full code. IV fluids, p.r.n. pain meds MRIs showing severe spinal stenosis; neurosurgery consulted for recommendations PT OT Dispo pending neurosurgical evaluation Comment Review of Relevant I have reviewed the following items elizabeth (where applicable) has been applied. Medications: Current Medications Medications (Trade) Dose Ordered Sig/Sury Route PRN Reason Start Time Stop Time Status Last Admin Dose Admin Morphine Sulfate (Morphine Sulfate) 2 mg PRN Q2HR PRN IVP SEVERE PAIN 7-10 09/26/20 23:45 09/27/20 02:17 Justifications for Admission Other Justification JANE PHILLIPS MD Sep 27, 2020 12:45
--- NOTE | 2020-09-27 14:59 | NUR ---
SW following. Discussed with RN, MRI still pending and final decision from Dr. Weinstein. SW will continue to follow.
[2020-09-27] MEDS: PANTOPRAZOLE 40 MG TABLET.DR. PO SCH (17:15)
[2020-09-27] MEDS: DEXAMETHASONE 1 MG TABLET PO SCH ×2 (17:15→23:44)
[2020-09-27] MEDS: GABAPENTIN 300 MG CAPSULE. PO SCH (21:12)
[2020-09-27] MEDS: HYDROcodone/APAP 5/325MG 1 TAB TABLET PO PRN (21:13)
[2020-09-27] MEDS: hydrALAZINE 10 MG TABLET PO PRN (21:27)
--- NOTE | 2020-09-27 23:42 | PDOC ---
PROGRESS NOTES Date of Service DATE: 09/27/20 TIME: 23:40 Subjective Subjective patient seen at 1240 no new complaints c/o back pain and lower extremity weakness, falls Objective Objective Vital Signs Date Time Temp Pulse Resp B/P (MAP) Pulse Ox O2 Delivery O2 Flow Rate FiO2 09/27/20 23:00 97.6 92 18 181/64 (103) 94 Nasal Cannula 2.0 97.6 Intake and Output 09/27/20 07:00 # Voids 4 Physical Exam General: Alert, Cooperative Neuro: Other (no change) Assessment Assessment Problems Medical Problems: (1) Inability to walk Status: Acute Plan Plan of Care thoracic/ lumbar MRI scans reviewed plan for thoracic laminectomy on Wednesday, discussed technique, rationale, risks. all questions answered. dexamethasone SCDs PT D/W RN Comment Review of Relevant I have reviewed the following items elizabeth (where applicable) has been applied. Labs Laboratory Tests Test 09/26/20 11:51 SARS-CoV-2 RNA (VENKAT) Negative (Negative) Medications Current Medications Acetaminophen/ Hydrocodone Bitart (Lortab 5/325) 1 tab 1X ONCE PO Last administered on 09/24/20at 20:23; Start 09/24/20 at 20:15; Stop 09/24/20 at 20:16; Status DC Acetaminophen/ Hydrocodone Bitart (Lortab 5/325) 1 tab PRN Q4HRS PRN PO PAIN Last administered on 09/27/20at 21:13; Start 09/25/20 at 00:45 Naproxen (Naprosyn) 250 mg 1X ONCE PO Last administered on 09/25/20at 01:34; Start 09/25/20 at 01:30; Stop 09/25/20 at 01:31; Status DC Gabapentin (Neurontin) 600 mg 1X ONCE PO Last administered on 09/25/20at 01:34; Start 09/25/20 at 01:30; Stop 09/25/20 at 01:31; Status DC Carbidopa/Levodopa (Sinemet 25/100) 1 tab 1X ONCE PO Last administered on 09/25/20at 01:34; Start 09/25/20 at 01:30; Stop 09/25/20 at 01:31; Status DC Aspirin (Aspirin Chewable) 81 mg DAILY PO Last administered on 09/27/20at 07:56; Start 09/25/20 at 11:00 Carbidopa/Levodopa (Sinemet 25/100) 1 tab 5XDAY PO Last administered on 09/26/20 06:04; Start 09/25/20 at 14:00; Stop 09/26/20 at 06:16; Status DC Gabapentin (Neurontin) 300 mg 5XDAY PRN PO neuropathy Last administered on 09/25/20 11:15; Start 09/25/20 at 10:45; Stop 09/25/20 at 13:29; Status DC Levothyroxine Sodium (Synthroid) 75 mcg DAILY06 PO Last administered on 09/27/20 05:43; Start 09/25/20 at 11:00 Lisinopril (Prinivil) 40 mg DAILY PO Last administered on 09/27/20 07:57; Start 09/25/20 at 11:00 Metoprolol Succinate (Toprol Xl) 50 mg DAILY PO Last administered on 09/27/20 07:56; Start 09/25/20 at 11:00 Ropinirole HCl (Requip) 0.5 mg TID PO Last administered on 09/27/20 21:12; Start 09/25/20 at 14:00 Gabapentin (Neurontin) 300 mg PRN Q6HRS PRN PO NEUROPATHY SYMPTOMS Last admini stered on 09/26/20 17:12; Start 09/25/20 at 13:30 Gabapentin (Neurontin) 600 mg QHS PO Last administered on 09/27/20 21:12; Start 09/25/20 at 21:00 Naproxen (Naprosyn) 250 mg BIDWMEALS PO Last administered on 09/27/20 17:15; Start 09/25/20 at 17:00 Nicotine (Nicoderm Cq 21mg) 1 patch PRN DAILY PRN TD SMOKING CESSATION Last administered on 09/26/20 09:41; Start 09/25/20 at 18:30 Carbidopa/Levodopa (Sinemet 25/100) 1 tab 0300,0700,1200,1700,2100 PO Last administered on 09/27/20 21:12; Start 09/26/20 at 07:00 Morphine Sulfate (Morphine Sulfate) 2 mg PRN Q2HR PRN IVP SEVERE PAIN 7-10 Last administered on 09/27/20at 02:17; Start 09/26/20 at 23:45 Hydralazine HCl (Apresoline) 10 mg PRN Q8HRS PRN PO SBP greater than 160 Last administered on 09/27/20at 21:27; Start 09/26/20 at 23:45 Ringer's Solution 1,000 ml @ 50 mls/hr Q20H IV ; Start 09/30/20 at 07:00; Stop 09/30/20 at 18:59 Dexamethasone (Decadron) 2 mg Q6HRS PO Last administered on 09/27/20at 17:15; Start 09/27/20 at 18:00 Pantoprazole Sodium (Protonix) 40 mg DAILYAC PO Last administered on 09/27/20at 17:15; Start 09/27/20 at 16:30 Active Scripts Active Reported Children's Aspirin (Aspirin) 81 Mg Tab.chew 1 Tab PO DAILY 30 Days Aleve (Naproxen Sodium) 220 Mg Capsule 220 Mg PO BID D3-50 (Cholecalciferol (Vitamin D3)) 50,000 Unit Capsule 2,000 Unit PO DAILY Megared [place]-3 Krill Oil Sfgl (Krill/Om-3/Dha/Epa/Phospho/Ast) 1 Each Capsule 1 Cap PO DAILY 30 Days Folic Acid 0.8 Mg Tablet 0.8 Mg PO DAILY B12 Active (Mecobalamin) 1,000 Mcg Tab.chew 500 Mcg PO DAILY Toprol XL (Metoprolol Succinate) 50 Mg Tab.er.24h 50 Mg PO DAILY Lisinopril 40 Mg Tablet 1 Tab PO DAILY Levothyroxine Sodium 75 Mcg Tablet 1 Tab PO DAILY Gabapentin (Gabapentin) 300 Mg Capsule 300 Mg PO 5XDAY PRN Carbidopa-Levodopa 25-100 Tab (Carbidopa/Levodopa) 1 Each Tablet 1 Tab PO 5XDAY 30 Days Ropinirole Hcl 0.5 Mg Tablet 0.5 Mg PO TID Vitals/I & O Vital Sign - Last 24 Hours 09/27/20 09/27/20 09/27/20 09/27/20 00:30 02:17 03:00 03:06 Temp 98.0 98.0 Pulse 72 Resp 16 16 18 16 B/P (MAP) 151/53 (85) Pulse Ox 92 96 O2 Delivery Room Air Room Air Nasal Cannula Room Air O2 Flow Rate 2.0 09/27/20 09/27/20 09/27/20 09/27/20 07:00 07:40 07:56 07:57 Temp 97.6 97.6 Pulse 70 69 69 Resp 18 B/P (MAP) 140/61 (87) 162/65 162/65 Pulse Ox 99 O2 Delivery Nasal Cannula Room Air O2 Flow Rate 2.0 2.0 09/27/20 09/27/20 09/27/20 09/27/20 11:00 15:00 19:00 20:00 Temp 97.8 97.8 98.2 97.8 97.8 98.2 Pulse 62 66 76 Resp 18 18 18 B/P (MAP) 133/69 (90) 149/81 (103) 199/77 (117) Pulse Ox 96 94 94 O2 Delivery Nasal Cannula Nasal Cannula Room Air Room Air O2 Flow Rate 2.0 09/27/20 09/27/20 09/27/20 09/27/20 21:13 21:27 22:07 23:00 Temp 97.6 97.6 Pulse 69 92 Resp 15 16 18 B/P (MAP) 163/112 181/64 (103) Pulse Ox 94 O2 Delivery Room Air Room Air Nasal Cannula O2 Flow Rate 2.0 Justifications for Admission Other Justification BRI RODRIGUEZ MD Sep 27, 2020 23:42
[2020-09-28] MEDS: GABAPENTIN 300 MG CAPSULE. PO PRN ×3 (02:47→17:04)
[2020-09-28] MEDS: CARBIDOPA/LEVODOPA 25/100MG TABLET PO SCH ×5 (02:47→21:17)
[2020-09-28 02:57] VITALS: BP 145/64
[2020-09-28] MEDS: DEXAMETHASONE 1 MG TABLET PO SCH ×3 (06:24→17:04)
[2020-09-28] MEDS: PANTOPRAZOLE 40 MG TABLET.DR. PO SCH (06:25)
[2020-09-28] MEDS: LEVOTHYROXINE 75 MCG TABLET PO SCH (06:25)
[2020-09-28] MEDS: NICOTINE 21MG PATCH. TD PRN (06:26)
[2020-09-28 08:00] VITALS: BP 161/81
[2020-09-28] MEDS: ASPIRIN CHEWABLE 81 MG TABLET. PO SCH (09:41)
[2020-09-28] MEDS: rOPINIRole 0.25 MG TABLET. PO SCH ×3 (09:42→21:17)
[2020-09-28] MEDS: LISINOPRIL 20 MG TABLET PO SCH (09:43)
[2020-09-28] MEDS: NAPROXEN 250 MG TABLET PO SCH ×2 (09:44→17:04)
[2020-09-28] MEDS: METOPROLOL SUCC 24HR ER 50 MG TAB.ER.24H. PO SCH (09:44)
--- NOTE | 2020-09-28 09:55 | PDOC ---
PROGRESS NOTES Date of Service DATE: 09/28/20 TIME: 09:49 Subjective Subjective No new complaints. Dr Weinstein started her on dexamethasone and plans for thoracic decompression laminectomy on Wednesday. Objective Objective Vital Signs Date Time Temp Pulse Resp B/P (MAP) Pulse Ox O2 Delivery O2 Flow Rate FiO2 09/28/20 09:44 72 161/81 09/28/20 08:00 97.7 18 89 Nasal Cannula 2.0 97.7 Intake and Output 09/28/20 07:00 Intake Total 820 ml Balance 820 ml Intake Oral 820 ml # Voids 8 # Bowel Movements 1 Physical Exam Physical Exam She is comfortable sitting at edge of bed and no change with her neurological status. Assessment Assessment Problems Medical Problems: (1) Inability to walk Status: Acute Plan Plan of Care To continue physical therapy follow up. Comment Review of Relevant I have reviewed the following items elizabeth (where applicable) has been applied. Labs Laboratory Tests Test 09/26/20 11:51 SARS-CoV-2 RNA (VENKAT) Negative (Negative) Medications Current Medications Acetaminophen/ Hydrocodone Bitart (Lortab 5/325) 1 tab 1X ONCE PO Last administered on 09/24/20at 20:23; Start 09/24/20 at 20:15; Stop 09/24/20 at 20:16; Status DC Acetaminophen/ Hydrocodone Bitart (Lortab 5/325) 1 tab PRN Q4HRS PRN PO PAIN Last administered on 09/27/20at 21:13; Start 09/25/20 at 00:45 Naproxen (Naprosyn) 250 mg 1X ONCE PO Last administered on 09/25/20at 01:34; Start 09/25/20 at 01:30; Stop 09/25/20 at 01:31; Status DC Gabapentin (Neurontin) 600 mg 1X ONCE PO Last administered on 09/25/20at 01:34; Start 09/25/20 at 01:30; Stop 09/25/20 at 01:31; Status DC Carbidopa/Levodopa (Sinemet 25/100) 1 tab 1X ONCE PO Last administered on 09/25/20at 01:34; Start 09/25/20 at 01:30; Stop 09/25/20 at 01:31; Status DC Aspirin (Aspirin Chewable) 81 mg DAILY PO Last administered on 09/28/20at 09:41; Start 09/25/20 at 11:00 Carbidopa/Levodopa (Sinemet 25/100) 1 tab 5XDAY PO Last administered on 09/26/20 06:04; Start 09/25/20 at 14:00; Stop 09/26/20 at 06:16; Status DC Gabapentin (Neurontin) 300 mg 5XDAY PRN PO neuropathy Last administered on 09/25/20at 11:15; Start 09/25/20 at 10:45; Stop 09/25/20 at 13:29; Status DC Levothyroxine Sodium (Synthroid) 75 mcg DAILY06 PO Last administered on 09/28/20 06:25; Start 09/25/20 at 11:00 Lisinopril (Prinivil) 40 mg DAILY PO Last administered on 09/28/20 09:43; Start 09/25/20 at 11:00 Metoprolol Succinate (Toprol Xl) 50 mg DAILY PO Last administered on 09/28/20 09:44; Start 09/25/20 at 11:00 Ropinirole HCl (Requip) 0.5 mg TID PO Last administered on 09/28/20 09:42; Start 09/25/20 at 14:00 Gabapentin (Neurontin) 300 mg PRN Q6HRS PRN PO NEUROPATHY SYMPTOMS Last administered on 09/28/20 02:47; Start 09/25/20 at 13:30 Gabapentin (Neurontin) 600 mg QHS PO Last administered on 09/27/20 21:12; Start 09/25/20 at 21:00 Naproxen (Naprosyn) 250 mg BIDWMEALS PO Last administered on 09/28/20 09:44; Start 09/25/20 at 17:00 Nicotine (Nicoderm Cq 21mg) 1 patch PRN DAILY PRN TD SMOKING CESSATION Last administered on 09/28/20 06:26; Start 09/25/20 at 18:30 Carbidopa/Levodopa (Sinemet 25/100) 1 tab 0300,0700,1200,1700,2100 PO Last administered on 09/28/20 06:25; Start 09/26/20 at 07:00 Morphine Sulfate (Morphine Sulfate) 2 mg PRN Q2HR PRN IVP SEVERE PAIN 7-10 Last administered on 09/27/20 02:17; Start 09/26/20 at 23:45 Hydralazine HCl (Apresoline) 10 mg PRN Q8HRS PRN PO SBP greater than 160 Last administered on 09/27/20at 21:27; Start 09/26/20 at 23:45 Ringer's Solution 1,000 ml @ 50 mls/hr Q20H IV ; Start 09/30/20 at 07:00; Stop 09/30/20 at 18:59 Dexamethasone (Decadron) 2 mg Q6HRS PO Last administered on 09/28/20at 06:24; Start 09/27/20 at 18:00 Pantoprazole Sodium (Protonix) 40 mg DAILYAC PO Last administered on 09/28/20at 06:25; Start 09/27/20 at 16:30 Active Scripts Active Reported Children's Aspirin (Aspirin) 81 Mg Tab.chew 1 Tab PO DAILY 30 Days Aleve (Naproxen Sodium) 220 Mg Capsule 220 Mg PO BID D3-50 (Cholecalciferol (Vitamin D3)) 50,000 Unit Capsule 2,000 Unit PO DAILY Megared [place]-3 Krill Oil Sfgl (Krill/Om-3/Dha/Epa/Phospho/Ast) 1 Each Capsule 1 Cap PO DAILY 30 Days Folic Acid 0.8 Mg Tablet 0.8 Mg PO DAILY B12 Active (Mecobalamin) 1,000 Mcg Tab.chew 500 Mcg PO DAILY Toprol XL (Metoprolol Succinate) 50 Mg Tab.er.24h 50 Mg PO DAILY Lisinopril 40 Mg Tablet 1 Tab PO DAILY Levothyroxine Sodium 75 Mcg Tablet 1 Tab PO DAILY Gabapentin (Gabapentin) 300 Mg Capsule 300 Mg PO 5XDAY PRN Carbidopa-Levodopa 25-100 Tab (Carbidopa/Levodopa) 1 Each Tablet 1 Tab PO 5XDAY 30 Days Ropinirole Hcl 0.5 Mg Tablet 0.5 Mg PO TID Vitals/I & O Vital Sign - Last 24 Hours 09/27/20 09/27/20 09/27/20 09/27/20 11:00 15:00 19:00 20:00 Temp 97.8 97.8 98.2 97.8 97.8 98.2 Pulse 62 66 76 Resp 18 18 18 B/P (MAP) 133/69 (90) 149/81 (103) 199/77 (117) Pulse Ox 96 94 94 O2 Delivery Nasal Cannula Nasal Cannula Room Air Room Air O2 Flow Rate 2.0 09/27/20 09/27/20 09/27/20 09/27/20 21:13 21:27 22:07 23:00 Temp 97.6 97.6 Pulse 69 92 Resp 15 16 18 B/P (MAP) 163/112 181/64 (103) Pulse Ox 94 O2 Delivery Room Air Room Air Nasal Cannula O2 Flow Rate 2.0 09/27/20 09/28/20 09/28/20 09/28/20 23:46 02:57 08:00 09:43 Temp 97.4 97.7 97.4 97.7 Pulse 73 80 72 72 Resp 18 18 B/P (MAP) 175/61 (99) 145/64 (91) 161/81 (107) 161/81 Pulse Ox 92 89 O2 Delivery Nasal Cannula Nasal Cannula O2 Flow Rate 2.0 2.0 09/28/20 09:44 Pulse 72 B/P (MAP) 161/81 Intake and Output 09/27/20 09/27/20 09/28/20 15:00 23:00 07:00 Intake Total 320 ml 500 ml Balance 320 ml 500 ml Justifications for Admission Other Justification FELIX MATUTE MD Sep 28, 2020 09:55
[2020-09-28 11:00] VITALS: BP 166/91
--- NOTE | 2020-09-28 12:32 | PDOC ---
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 She has had 3 on her lumbar spine and 3 on her cervical spine. Now, she is having some falls with back pain. She also has Parkinson's diagnosis, but insists that she really does not have much symptoms with that. I discussed the case with ER physician. We are going to admit the patient and consult Neurosurgery. 09/25/20 Patient seen and examined to bedside. Says back pain is well controlled currently she just feels very unsteady on her feet. Awaiting neurosurgery consult. PT OT ordered. Patient may need rehab on discharge. Home meds resumed. 09/26/20 Patient seen and examined at bedside. No major complaints this morning. Neurosurgery recommending MRI evaluation, patient agreeable. PT OT ordered. Plan of care discussed with bedside nurse. 09/27/20 Patient seen and examined at bedside. MRI yesterday showing severe spinal stenosis. Patient with no major complaints this morning. Awaiting neurosurgery recommendations. Plan of care discussed with bedside nurse 09/28/2020 No acute events overnight. Patient seen and examined bedside. IV steroids and plan for laminectomy Wednesday. Vitals/I&O Vitals/I&O: Vital Signs Date Time Temp Pulse Resp B/P (MAP) Pulse Ox O2 Delivery O2 Flow Rate FiO2 09/28/20 11:00 97.7 81 16 166/91 (116) 95 Nasal Cannula 2.0 97.7 I & O 09/27/20 09/27/20 09/28/20 15:00 23:00 07:00 Intake Total 320 ml 500 ml Balance 320 ml 500 ml Physical Exam General: Alert, Cooperative Heart: Regular rate, Normal S1, Normal S2 Lungs: Clear Abdomen: Normal bowel sounds, Soft Extremities: No clubbing, No edema Skin: No rashes, No significant lesion Assessment and Plan Assessmemt and Plan Problems Medical Problems: (1) Inability to walk Status: Acute Comment Review of Relevant I have reviewed the following items elizabeth (where applicable) has been applied. Medications: Current Medications Medications (Trade) Dose Ordered Sig/Sury Route PRN Reason Start Time Stop Time Status Last Admin Dose Admin Dexamethasone (Decadron) 2 mg Q6HRS PO 09/27/20 18:00 09/28/20 12:25 Pantoprazole Sodium (Protonix) 40 mg DAILYAC PO 09/27/20 16:30 09/28/20 06:25 Justifications for Admission Other Justification DIVINA RITTER MD Sep 28, 2020 12:32
[2020-09-28 15:45] VITALS: BP 159/57
--- NOTE | 2020-09-28 18:50 | NUR ---
report to maintenance technician 3rd shift, care relinquished
[2020-09-28 19:00] VITALS: BP 181/84
[2020-09-28] MEDS: GABAPENTIN 300 MG CAPSULE. PO SCH (21:17)
[2020-09-28] MEDS: HYDROcodone/APAP 5/325MG 1 TAB TABLET PO PRN (21:23)
[2020-09-28 22:45] VITALS: BP 187/94
[2020-09-28] MEDS: hydrALAZINE 10 MG TABLET PO PRN (23:19)
[2020-09-29] MEDS: DEXAMETHASONE 1 MG TABLET PO SCH ×5 (00:29→23:45)
[2020-09-29 03:00] VITALS: BP 158/71
[2020-09-29] MEDS: CARBIDOPA/LEVODOPA 25/100MG TABLET PO SCH ×5 (03:17→20:43)
[2020-09-29] MEDS: LEVOTHYROXINE 75 MCG TABLET PO SCH (05:45)
[2020-09-29] MEDS: PANTOPRAZOLE 40 MG TABLET.DR. PO SCH (06:23)
[2020-09-29 07:18] VITALS: BP 184/82
[2020-09-29] MEDS: hydrALAZINE 10 MG TABLET PO PRN ×2 (07:33→20:42)
[2020-09-29] MEDS: NAPROXEN 250 MG TABLET PO SCH ×2 (07:33→18:11)
[2020-09-29] MEDS: GABAPENTIN 300 MG CAPSULE. PO PRN ×2 (09:32→14:28)
[2020-09-29] MEDS: LISINOPRIL 20 MG TABLET PO SCH (09:33)
[2020-09-29] MEDS: ASPIRIN CHEWABLE 81 MG TABLET. PO SCH (09:33)
[2020-09-29] MEDS: METOPROLOL SUCC 24HR ER 50 MG TAB.ER.24H. PO SCH (09:33)
[2020-09-29] MEDS: rOPINIRole 0.25 MG TABLET. PO SCH ×3 (09:33→20:43)
[2020-09-29 10:15] LABS: PROTHROMBIN TIME PATIENT 13.4 SEC (11.7-14.0)
[2020-09-29 11:00] VITALS: BP 152/64
--- NOTE | 2020-09-29 11:22 | PDOC ---
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 She has had 3 on her lumbar spine and 3 on her cervical spine. Now, she is having some falls with back pain. She also has Parkinson's diagnosis, but insists that she really does not have much symptoms with that. I discussed the case with ER physician. We are going to admit the patient and consult Neurosurgery. 09/25/20 Patient seen and examined to bedside. Says back pain is well controlled currently she just feels very unsteady on her feet. Awaiting neurosurgery consult. PT OT ordered. Patient may need rehab on discharge. Home meds resumed. 09/26/20 Patient seen and examined at bedside. No major complaints this morning. Neurosurgery recommending MRI evaluation, patient agreeable. PT OT ordered. Plan of care discussed with bedside nurse. 09/27/20 Patient seen and examined at bedside. MRI yesterday showing severe spinal stenosis. Patient with no major complaints this morning. Awaiting neurosurgery recommendations. Plan of care discussed with bedside nurse 09/28/2020 No acute events overnight. Patient seen and examined bedside. IV steroids and plan for laminectomy Wednesday. 09/29/20 Patient seen and examined at bedside. No major events overnight. Planning for laminectomy Wednesday. Vitals/I&O Vitals/I&O: Vital Signs Date Time Temp Pulse Resp B/P (MAP) Pulse Ox O2 Delivery O2 Flow Rate FiO2 09/29/20 09:33 72 184/82 09/29/20 07:35 Room Air 2.0 09/29/20 07:18 97.4 20 96 97.4 I & O 09/28/20 09/28/20 09/29/20 15:00 23:00 07:00 Intake Total 240 ml 240 ml Output Total 400 ml 200 ml Balance -160 ml 40 ml Physical Exam General: Alert, Cooperative Heart: Regular rate, Normal S1, Normal S2 Lungs: Clear Abdomen: Normal bowel sounds, Soft Extremities: No clubbing, No edema Skin: No rashes, No significant lesion Labs Labs: Laboratory Tests Test 09/29/20 10:00 Prothrombin Time 13.4 SEC (11.7-14.0) Prothromb Time International Ratio 1.0 (0.8-1.1) Assessment and Plan Assessmemt and Plan Problems Medical Problems: (1) Inability to walk Status: Acute Back pain and falls. 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 The patient has been admitted. We will consult Neurosurgery. Home meds. Deep venous thrombosis prophylaxis. Full code. IV fluids, p.r.n. pain meds MRIs showing severe spinal stenosis; neurosurgery consulted for recommendations PT OT Planning for laminectomy Wednesday Comment Review of Relevant I have reviewed the following items elizabeth (where applicable) has been applied. Justifications for Admission Other Justification JANE PHILLIPS MD Sep 29, 2020 11:22
[2020-09-29] MEDS: NICOTINE 21MG PATCH. TD PRN (11:43)
[2020-09-29 14:53] VITALS: BP 160/77
--- NOTE | 2020-09-29 19:13 | NUR ---
Patient had unwitnessed slip/fall today around 1800. Patient told this RN that she was hugging his son before he left and then had a leak when standing up. After her son left, she slip on her won urine while trying to sit on her bedside. This RN responded to patient called light and found patient on the floor and could not get up. After assessment, patient was help back to bed by this RN and patient did not complained of any pain at this time. Patient reported that she feel fine and just slip. Dr. Urias was notified about the fall and no new ordered received at this time.
[2020-09-29 19:44] VITALS: BP 216/111
[2020-09-29] MEDS: GABAPENTIN 300 MG CAPSULE. PO SCH (20:42)
[2020-09-29 23:00] VITALS: BP 166/65
[2020-09-30] VITALS (9 sets, daily range): BP systolic 148–206; BP diastolic 76–143
[2020-09-30] MEDS: CARBIDOPA/LEVODOPA 25/100MG TABLET PO SCH ×5 (03:53→20:53)
[2020-09-30] MEDS: hydrALAZINE 10 MG TABLET PO PRN ×2 (04:15→17:43)
--- NOTE | 2020-09-30 05:12 | NUR ---
Per JULIO C, jane to give Carbidopa/Levodopa, Decadron, Metoprolol Succinate with sips of water prior to surgery.
[2020-09-30] MEDS: DEXAMETHASONE 1 MG TABLET PO SCH ×4 (05:28→23:53)
[2020-09-30] MEDS: METOPROLOL SUCC 24HR ER 50 MG TAB.ER.24H. PO SCH (05:29)
[2020-09-30] MEDS: LEVOTHYROXINE 75 MCG TABLET PO SCH (06:00)
[2020-09-30] MEDS: PANTOPRAZOLE 40 MG TABLET.DR. PO SCH (06:46)
[2020-09-30] MEDS ORDERED: IV RINGERS,LACTATED 1000ML 1,000 ML IV SCH ×2 (07:00→15:45)
--- NOTE | 2020-09-30 07:18 | PDOC ---
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 She has had 3 on her lumbar spine and 3 on her cervical spine. Now, she is having some falls with back pain. Admitted the patient and consult Neurosurgery. 09/25:Patient seen and examined to bedside. Says back pain is well controlled currently she just feels very unsteady on her feet. Awaiting neurosurgery consult. PT OT ordered. 09/26: No major complaints this morning. Neurosurgery recommending MRI evaluation, patient agreeable. PMR consulted 09/27: MRI yesterday showing severe spinal stenosis with T-9-10 severe compression and spinal cord signal change. Awaiting neurosurgery recommendations. 09/28: No acute events overnight. Patient seen and examined bedside. IV steroids and plan for laminectomy Wednesday. 09/29: Patient seen and examined at bedside. No major events overnight. Planning for laminectomy Wednesday. Afebrile overnight. Minimal pain. N.p.o. for neurosurgery likely T9-10 laminectomy. Vitals/I&O Vitals/I&O: Vital Signs Date Time Temp Pulse Resp B/P (MAP) Pulse Ox O2 Delivery O2 Flow Rate FiO2 09/30/20 05:29 74 206/97 09/30/20 04:00 98.0 20 94 Room Air 98.0 09/29/20 07:35 2.0 I & O 09/29/20 09/29/20 09/30/20 15:00 23:00 07:00 Intake Total 300 ml 120 ml Output Total 400 ml 200 ml Balance -100 ml -80 ml Physical Exam General: Alert, Cooperative Heart: Regular rate, Normal S1, Normal S2 Lungs: Clear Abdomen: Normal bowel sounds, Soft Extremities: No clubbing, No edema Skin: No rashes, No significant lesion Labs Labs: Laboratory Tests Test 09/29/20 10:00 Prothrombin Time 13.4 SEC (11.7-14.0) Prothromb Time International Ratio 1.0 (0.8-1.1) Assessment and Plan Assessmemt and Plan Problems Medical Problems: (1) Inability to walk Status: Acute Comment Review of Relevant I have reviewed the following items elizabeth (where applicable) has been applied. Justifications for Admission Other Justification JANE VELA MD Sep 30, 2020 07:18
[2020-09-30] MEDS ORDERED: BUPIVACAINE-EPI 0.5%-1:200000 MPF 30 ML VIAL. ONE (07:29)
[2020-09-30] MEDS ORDERED: THROMBIN TOPICAL 20,000 UNIT SPRAY.SYRN KIT TP ONE (07:29)
[2020-09-30] MEDS ORDERED: KETOROLAC 60 MG/2 ML VIAL. ONE (07:29)
[2020-09-30] MEDS ORDERED: GELATIN SPONGE SIZE 100. ONE (07:29)
[2020-09-30] MEDS ORDERED: ceFAZolin SODIUM 1 GM in IV NORMAL SALINE 1000ML BAG 1,000 ML IRR ONE (08:00)
[2020-09-30] MEDS: NAPROXEN 250 MG TABLET PO SCH ×2 (08:00→17:00)
[2020-09-30] MEDS: LISINOPRIL 20 MG TABLET PO SCH (09:00)
[2020-09-30] MEDS ORDERED: ceFAZolin 2GM PREMIX 2 GM/50 ML BAG IV ONE (09:00)
[2020-09-30] MEDS: rOPINIRole 0.25 MG TABLET. PO SCH ×3 (09:00→20:53)
[2020-09-30] MEDS: ASPIRIN CHEWABLE 81 MG TABLET. PO SCH (09:00)
[2020-09-30] MEDS ORDERED: ROCURONIUM 50 MG/5 ML VIAL. ONE (09:59)
[2020-09-30] MEDS ORDERED: REMIFENTANIL 2 MG VIAL. IV ONE (09:59)
[2020-09-30] MEDS ORDERED: fentaNYL PF VIAL 100 MCG/2 ML VIAL ONE ×2 (09:59→15:25)
[2020-09-30] MEDS ORDERED: PROPOFOL 10 MG/ML (20ML) VIAL. IV ONE (10:00)
[2020-09-30] MEDS ORDERED: ONDANSETRON PF 4 MG/2 ML VIAL. ONE (10:00)
[2020-09-30] MEDS ORDERED: LIDOCAINE 2% PF 5 ML VIAL. ONE (10:00)
[2020-09-30] MEDS ORDERED: DEXAMETHASONE SOD PHOS 4 MG/ML VIAL ONE (10:00)
[2020-09-30] MEDS ORDERED: MIDAZOLAM HCL/PF 2 MG/2 ML VIAL. ONE (10:04)
[2020-09-30] MEDS ORDERED: PROPOFOL 50 ML IV ONE (10:04)
--- NOTE | 2020-09-30 10:26 | NUR ---
SW following. Discussed with RN, pt from home alone. Pt having a thoracic laminectomy today. SW to follow up RE discharge planning after pt works with therapy after surgery. SW will continue to follow.
[2020-09-30] MEDS ORDERED: ePHEDrine PF IN SALINE 50 MG/10 ML SYRINGE. IV ONE (13:02)
[2020-09-30] MEDS ORDERED: NEOSTIGMINE METHYLSULFATE 5 MG/5 ML SYRINGE. ONE (14:54)
[2020-09-30] MEDS: fentaNYL PF VIAL 100 MCG/2 ML VIAL IVP PRN ×2 (15:28→15:40)
[2020-09-30] MEDS ORDERED: PROCHLORPERAZINE 10 MG/2 ML VIAL. IVP PRN (15:45)
[2020-09-30] MEDS ORDERED: HYDROmorphone 2 MG/ML VIAL IVP PRN (15:45)
[2020-09-30] MEDS ORDERED: MORPHINE SULFATE 2 MG/ML INJ. IVP PRN (15:45)
[2020-09-30] MEDS ORDERED: fentaNYL PF VIAL 100 MCG/2 ML VIAL IVP PRN (15:45)
[2020-09-30] MEDS: GABAPENTIN 300 MG CAPSULE. PO SCH (20:53)
[2020-09-30] MEDS: HYDROcodone/APAP 5/325MG 1 TAB TABLET PO PRN (20:58)
[2020-10-01 03:16] VITALS: BP 138/72
[2020-10-01] MEDS: CARBIDOPA/LEVODOPA 25/100MG TABLET PO SCH ×5 (03:16→21:41)
[2020-10-01] MEDS: HYDROcodone/APAP 5/325MG 1 TAB TABLET PO PRN ×3 (03:42→21:42)
[2020-10-01] MEDS: PANTOPRAZOLE 40 MG TABLET.DR. PO SCH (05:45)
[2020-10-01] MEDS: DEXAMETHASONE 1 MG TABLET PO SCH ×3 (05:45→17:33)
[2020-10-01] MEDS: LEVOTHYROXINE 75 MCG TABLET PO SCH (05:45)
[2020-10-01] MEDS: NICOTINE 21MG PATCH. TD PRN (05:51)
--- NOTE | 2020-10-01 07:17 | PDOC ---
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 She has had 3 on her lumbar spine and 3 on her cervical spine. Now, she is having some falls with back pain. Admitted the patient and consult Neurosurgery. 09/25:Patient seen and examined to bedside. Says back pain is well controlled currently she just feels very unsteady on her feet. Awaiting neurosurgery consult. PT OT ordered. 09/26: No major complaints this morning. Neurosurgery recommending MRI evaluation, patient agreeable. PMR consulted 09/27: MRI yesterday showing severe spinal stenosis with T-9-10 severe compression and spinal cord signal change. Awaiting neurosurgery recommendations. 09/28: No acute events overnight. Patient seen and examined bedside. IV steroids and plan for laminectomy Wednesday. 09/29: Patient seen and examined at bedside. No major events overnight. Planning for laminectomy Wednesday. 09/30: Afebrile overnight. Minimal pain. N.p.o. for neurosurgery T9-10 laminectomy. Afebrile. Can feel her legs again today. Getting her strength back. She wishes to go home with home health. Likely can attempt to do this on 10/02/2020 Vitals/I&O Vitals/I&O: Vital Signs Date Time Temp Pulse Resp B/P (MAP) Pulse Ox O2 Delivery O2 Flow Rate FiO2 10/01/20 04:12 20 92 Room Air 10/01/20 03:16 98.1 68 138/72 (94) 98.1 09/30/20 16:16 2.0 I & O 09/30/20 09/30/20 10/01/20 15:00 23:00 07:00 Intake Total 50 ml 1400 ml 500 ml Output Total 30 ml 700 ml Balance 50 ml 1370 ml -200 ml Physical Exam General: Alert, Cooperative Heart: Regular rate, Normal S1, Normal S2 Lungs: Clear Abdomen: Normal bowel sounds, Soft Extremities: No clubbing, No edema Skin: No rashes, No significant lesion Assessment and Plan Assessmemt and Plan Problems Medical Problems: (1) Inability to walk Status: Acute Comment Review of Relevant I have reviewed the following items elizabeth (where applicable) has been applied. Medications: Current Medications Medications (Trade) Dose Ordered Sig/Sury Route PRN Reason Start Time Stop Time Status Last Admin Dose Admin Cefazolin Sodium 1 gm/Sodium Chloride 1,000 ml @ 1,000 mls/hr 1X ONCE IRR 09/30/20 08:00 09/30/20 08:59 DC 09/30/20 13:06 Gelatin (Gelfoam Size 100) 1 each STK-MED ONCE .ROUTE 09/30/20 07:29 09/30/20 07:29 DC 09/30/20 13:06 Bupivacaine HCl/ Epinephrine Bitart (Sensorcain-Epi 0.5%-1:526640 Mpf) 30 ml STK-MED ONCE .ROUTE 09/30/20 07:29 09/30/20 07:29 DC 09/30/20 13:06 Ketorolac Tromethamine (Toradol Im) 60 mg STK-MED ONCE .ROUTE 09/30/20 07:29 09/30/20 07:29 DC 09/30/20 13:06 Thrombin 20,000 unit STK-MED ONCE TP 09/30/20 07:29 09/30/20 07:30 DC 09/30/20 13:06 Fentanyl Citrate (Fentanyl 2ml Vial) 50 mcg PRN Q5MIN PRN IVP MODERATE PAIN 4-6 09/30/20 15:45 10/01/20 02:00 DC 09/30/20 15:40 Morphine Sulfate (Morphine Sulfate) 1 mg PRN Q10MIN PRN IVP SEVERE PAIN 7-10 09/30/20 15:45 10/01/20 02:00 DC 09/30/20 16:16 Justifications for Admission Other Justification JANE VELA MD Oct 01, 2020 07:17
[2020-10-01 07:30] VITALS: BP 147/63
--- NOTE | 2020-10-01 09:33 | PDOC ---
PROGRESS NOTES Date of Service DATE: 10/01/20 TIME: 09:30 Subjective Subjective She feels better and wants to go home with home health. Objective Objective Vital Signs Date Time Temp Pulse Resp B/P (MAP) Pulse Ox O2 Delivery O2 Flow Rate FiO2 10/01/20 07:30 97.4 64 18 147/63 (91) 92 Room Air 97.4 09/30/20 16:16 2.0 Intake and Output 10/01/20 07:00 Intake Total 1950 ml Output Total 730 ml Balance 1220 ml Intake Oral 500 ml IV Total 1450 ml Output Urine Total 700 ml Estimated Blood Loss 30 ml Physical Exam Physical Exam She continues with lower extremity [id number] while up walking with roller walker and narrow based gait. She is a fall risk if she goes home now. Assessment Assessment Problems Medical Problems: (1) Inability to walk Status: Acute Plan Plan of Care To resume physical and occupational therapy follow up and decide on rehab or home with home health follow up depending on her progress in the next 2 days. Comment Review of Relevant I have reviewed the following items elizabeth (where applicable) has been applied. Labs Laboratory Tests Test 09/29/20 10:00 Prothrombin Time 13.4 SEC (11.7-14.0) Prothromb Time International Ratio 1.0 (0.8-1.1) Medications Current Medications Acetaminophen/ Hydrocodone Bitart (Lortab 5/325) 1 tab 1X ONCE PO Last administered on 09/24/20at 20:23; Start 09/24/20 at 20:15; Stop 09/24/20 at 20:16; Status DC Acetaminophen/ Hydrocodone Bitart (Lortab 5/325) 1 tab PRN Q4HRS PRN PO PAIN Last administered on 10/01/20at 03:42; Start 09/25/20 at 00:45 Naproxen (Naprosyn) 250 mg 1X ONCE PO Last administered on 09/25/20at 01:34; Start 09/25/20 at 01:30; Stop 09/25/20 at 01:31; Status DC Gabapentin (Neurontin) 600 mg 1X ONCE PO Last administered on 09/25/20at 01:34; Start 09/25/20 at 01:30; Stop 09/25/20 at 01:31; Status DC Carbidopa/Levodopa (Sinemet 25/100) 1 tab 1X ONCE PO Last administered on 09/25/20 01:34; Start 09/25/20 at 01:30; Stop 09/25/20 at 01:31; Status DC Aspirin (Aspirin Chewable) 81 mg DAILY PO Last administered on 09/29/20at 09:33; Start 09/25/20 at 11:00 Carbidopa/Levodopa (Sinemet 25/100) 1 tab 5XDAY PO Last administered on 09/26/20at 06:04; Start 09/25/20 at 14:00; Stop 09/26/20 at 06:16; Status DC Gabapentin (Neurontin) 300 mg 5XDAY PRN PO neuropathy Last administered on 09/25/20 11:15; Start 09/25/20 at 10:45; Stop 09/25/20 at 13:29; Status DC Levothyroxine Sodium (Synthroid) 75 mcg DAILY06 PO Last administered on 10/01/20at 05:45; Start 09/25/20 at 11:00 Lisinopril (Prinivil) 40 mg DAILY PO Last administered on 09/29/20 09:33; Start 09/25/20 at 11:00 Metoprolol Succinate (Toprol Xl) 50 mg DAILY PO Last administered on 09/30/20 05:29; Start 09/25/20 at 11:00 Ropinirole HCl (Requip) 0.5 mg TID PO Last administered on 09/30/20 20:53; Start 09/25/20 at 14:00 Gabapentin (Neurontin) 300 mg PRN Q6HRS PRN PO NEUROPATHY SYMPTOMS Last admi nistered on 09/29/20at 14:28; Start 09/25/20 at 13:30 Gabapentin (Neurontin) 600 mg QHS PO Last administered on 09/30/20 20:53; Start 09/25/20 at 21:00 Naproxen (Naprosyn) 250 mg BIDWMEALS PO Last administered on 09/29/20 18:11; Start 09/25/20 at 17:00 Nicotine (Nicoderm Cq 21mg) 1 patch PRN DAILY PRN TD SMOKING CESSATION Last administered on 10/01/20 05:51; Start 09/25/20 at 18:30 Carbidopa/Levodopa (Sinemet 25/100) 1 tab 0300,0700,1200,1700,2100 PO Last administered on 10/01/20at 07:00; Start 09/26/20 at 07:00 Morphine Sulfate (Morphine Sulfate) 2 mg PRN Q2HR PRN IVP SEVERE PAIN 7-10 Last administered on 09/27/20at 02:17; Start 09/26/20 at 23:45 Hydralazine HCl (Apresoline) 10 mg PRN Q8HRS PRN PO SBP greater than 160 Last administered on 09/30/20at 17:43; Start 09/26/20 at 23:45 Ringer's Solution 1,000 ml @ 50 mls/hr Q20H IV Last administered on 09/30/20at 09:11; Start 09/30/20 at 07:00; Stop 09/30/20 at 18:59; Status DC Dexamethasone (Decadron) 2 mg Q6HRS PO Last administered on 10/01/20at 05:45; S tart 09/27/20 at 18:00 Pantoprazole Sodium (Protonix) 40 mg DAILYAC PO Last administered on 10/01/20at 05:45; Start 09/27/20 at 16:30 Cefazolin Sodium/ Dextrose 50 ml @ 100 mls/hr 1X PREOP PRN IV PRIOR TO PROCEDURE; Start 09/30/20 at 06:00; Stop 09/30/20 at 18:00; Status DC Cefazolin Sodium 1 gm/Sodium Chloride 1,000 ml @ 1,000 mls/hr 1X ONCE IRR Last administered on 09/30/20at 13:06; Start 09/30/20 at 08:00; Stop 09/30/20 at 08:59; Status DC Gelatin (Gelfoam Size 100) 1 each STK-MED ONCE .ROUTE Last administered on 09/30/20at 13:06; Start 09/30/20 at 07:29; Stop 09/30/20 at 07:29; Status DC Bupivacaine HCl/ Epinephrine Bitart (Sensorcain-Epi 0.5%-1:332371 Mpf) 30 ml STK-MED ONCE .ROUTE Last administered on 09/30/20at 13:06; Start 09/30/20 at 07:29; Stop 09/30/20 at 07:29; Status DC Ketorolac Tromethamine (Toradol Im) 60 mg STK-MED ONCE .ROUTE Last administered on 09/30/20at 13:06; Start 09/30/20 at 07:29; Stop 09/30/20 at 07:29; Status DC Thrombin 20,000 unit STK-MED ONCE TP Last administered on 09/30/20at 13:06; Start 09/30/20 at 07:29; Stop 09/30/20 at 07:30; Status DC Fentanyl Citrate (Fentanyl 2ml Vial) 100 mcg STK-MED ONCE .ROUTE ; Start 09/30/20 at 09:59; Stop 09/30/20 at 09:59; Status DC Rocuronium [place] (Zemuron) 50 mg STK-MED ONCE .ROUTE ; Start 09/30/20 at 09:59; Stop 09/30/20 at 10:00; Status DC Remifentanil HCl (Ultiva) 2 mg STK-MED ONCE IV ; Start 09/30/20 at 09:59; Stop 09/30/20 at 10:00; Status DC Dexamethasone Sodium Phosphate (Decadron) 4 mg STK-MED ONCE .ROUTE ; Start 09/30/20 at 10:00; Stop 09/30/20 at 10:00; Status DC Ondansetron HCl (Zofran) 4 mg STK-MED ONCE .ROUTE ; Start 09/30/20 at 10:00; Stop 09/30/20 at 10:00; Status DC Propofol (Diprivan) 200 mg STK-MED ONCE IV ; Start 09/30/20 at 10:00; Stop 09/30/20 at 10:00; Status DC Lidocaine HCl (Lidocaine Pf 2% Vial) 5 ml STK-MED ONCE .ROUTE ; Start 09/30/20 at 10:00; Stop 09/30/20 at 10:00; Status DC Propofol 50 ml @ As Directed STK-MED ONCE IV ; Start 09/30/20 at 10:04; Stop 09/30/20 at 10:04; Status DC Midazolam HCl (Versed) 2 mg STK-MED ONCE .ROUTE ; Start 09/30/20 at 10:04; Stop 09/30/20 at 10:04; Status DC Ephedrine Sulfate (ePHEDrine PF IN SALINE SYRINGE) 50 mg STK-MED ONCE IV ; Start 09/30/20 at 13:02; Stop 09/30/20 at 13:02; Status DC Neostigmine [place] (Neostigmine Methylsulfate) 5 mg STK-MED ONCE .ROUTE ; Start 09/30/20 at 14:54; Stop 09/30/20 at 14:55; Status DC Fentanyl Citrate (Fentanyl 2ml Vial) 100 mcg STK-MED ONCE .ROUTE ; Start 09/30/20 at 15:25; Stop 09/30/20 at 15:25; Status DC Fentanyl Citrate (Fentanyl 2ml Vial) 25 mcg PRN Q5MIN PRN IVP MILD PAIN 1-3; Start 09/30/20 at 15:45; Stop 10/01/20 at 02:00; Status DC Fentanyl Citrate (Fentanyl 2ml Vial) 50 mcg PRN Q5MIN PRN IVP MODERATE PAIN 4-6 Last administered on 09/30/20at 15:40; Start 09/30/20 at 15:45; Stop 10/01/20 at 02:00; Status DC Morphine Sulfate (Morphine Sulfate) 1 mg PRN Q10MIN PRN IVP SEVERE PAIN 7-10 Last administered on 09/30/20at 16:16; Start 09/30/20 at 15:45; Stop 10/01/20 at 02:00; Status DC Ringer's Solution 1,000 ml @ 30 mls/hr Q24H IV ; Start 09/30/20 at 15:45; Stop 10/01/20 at 03:44; Status DC Hydromorphone HCl (Dilaudid) 0.5 mg PRN Q10MIN PRN IVP SEVERE PAIN 7-10, 2nd CHOICE; Start 09/30/20 at 15:45; Stop 10/01/20 at 02:00; Status DC Prochlorperazine Edisylate (Compazine) 5 mg PACU PRN PRN IVP NAUSEA, MRX1; Start 09/30/20 at 15:45; Stop 10/01/20 at 02:00; Status DC Active Scripts Active Reported Children's Aspirin (Aspirin) 81 Mg Tab.chew 1 Tab PO DAILY 30 Days Aleve (Naproxen Sodium) 220 Mg Capsule 220 Mg PO BID D3-50 (Cholecalciferol (Vitamin D3)) 50,000 Unit Capsule 2,000 Unit PO DAILY Megared [place]-3 Krill Oil Sfgl (Krill/Om-3/Dha/Epa/Phospho/Ast) 1 Each Capsule 1 Cap PO DAILY 30 Days Folic Acid 0.8 Mg Tablet 0.8 Mg PO DAILY B12 Active (Mecobalamin) 1,000 Mcg Tab.chew 500 Mcg PO DAILY Toprol XL (Metoprolol Succinate) 50 Mg Tab.er.24h 50 Mg PO DAILY Lisinopril 40 Mg Tablet 1 Tab PO DAILY Levothyroxine Sodium 75 Mcg Tablet 1 Tab PO DAILY Gabapentin (Gabapentin) 300 Mg Capsule 300 Mg PO 5XDAY PRN Carbidopa-Levodopa 25-100 Tab (Carbidopa/Levodopa) 1 Each Tablet 1 Tab PO 5XDAY 30 Days Ropinirole Hcl 0.5 Mg Tablet 0.5 Mg PO TID Vitals/I & O Vital Sign - Last 24 Hours 09/30/20 09/30/20 09/30/20 09/30/20 15:17 15:17 15:28 15:30 Temp 97.1 97.1 Pulse 74 70 Resp 16 16 24 B/P (MAP) 153/83 181/76 Pulse Ox 96 95 98 O2 Delivery Simple Mask Mask Simple Mask Nasal Cannula O2 Flow Rate 8 10 8.0 3 09/30/20 09/30/20 09/30/20 09/30/20 15:40 15:45 16:00 16:15 Temp 97.0 97.0 Pulse 63 62 61 Resp 16 16 16 18 B/P (MAP) 184/89 185/92 171/89 Pulse Ox 96 94 93 O2 Delivery Nasal Cannula Nasal Cannula Nasal Cannula O2 Flow Rate 3.0 2 2 09/30/20 09/30/20 09/30/20 09/30/20 16:16 16:45 17:00 17:15 Pulse 66 63 60 Resp 20 18 18 18 B/P (MAP) 191/88 (122) 196/93 (127) 198/96 (130) Pulse Ox 95 95 95 95 O2 Delivery Nasal Cannula Room Air Room Air Room Air O2 Flow Rate 2.0 09/30/20 09/30/20 09/30/20 09/30/20 17:30 17:43 17:45 18:15 Pulse 70 61 75 76 Resp 18 18 18 B/P (MAP) 171/89 168/143 (151) Pulse Ox 90 93 O2 Delivery Room Air Room Air Room Air 09/30/20 09/30/20 09/30/2021 18:45 19:00 20:00 21:28 Temp 98.0 98.0 Pulse 78 65 Resp 18 18 20 B/P (MAP) 170/93 (118) 156/76 (102) Pulse Ox 89 97 92 O2 Delivery Room Air Room Air Room Air Room Air 09/30/20 10/01/20 10/01/20 10/01/20 23:00 03:16 03:42 04:12 Temp 97.0 98.1 97.0 98.1 Pulse 56 68 Resp 18 18 20 20 B/P (MAP) 148/88 (108) 138/72 (94) Pulse Ox 92 92 92 O2 Delivery Room Air Room Air Room Air Room Air 10/01/20 07:30 Temp 97.4 97.4 Pulse 64 Resp 18 B/P (MAP) 147/63 (91) Pulse Ox 92 O2 Delivery Room Air Intake and Output 09/30/20 09/30/20 10/01/20 15:00 23:00 07:00 Intake Total 50 ml 1400 ml 500 ml Output Total 30 ml 700 ml Balance 50 ml 1370 ml -200 ml Justifications for Admission Other Justification FELIX MATUTE MD Oct 01, 2020 09:33
[2020-10-01] MEDS: NAPROXEN 250 MG TABLET PO SCH ×2 (09:41→17:33)
[2020-10-01] MEDS: LISINOPRIL 20 MG TABLET PO SCH (09:41)
[2020-10-01] MEDS: ASPIRIN CHEWABLE 81 MG TABLET. PO SCH (09:41)
[2020-10-01] MEDS: rOPINIRole 0.25 MG TABLET. PO SCH ×3 (09:42→21:41)
[2020-10-01] MEDS: METOPROLOL SUCC 24HR ER 50 MG TAB.ER.24H. PO SCH (09:42)
[2020-10-01 11:00] VITALS: BP 150/55
--- NOTE | 2020-10-01 13:09 | PDOC ---
PROGRESS NOTES Date of Service DATE: 10/01/20 TIME: 13:07 Subjective Subjective POD #1 S/P thoracic laminectomy T8,9,10 feels much better, legs feel stronger, sensation improved wants to go home Objective Objective Vital Signs Date Time Temp Pulse Resp B/P (MAP) Pulse Ox O2 Delivery O2 Flow Rate FiO2 10/01/20 12:46 94 Room Air 10/01/20 11:00 63 18 150/55 (86) 10/01/20 08:15 2.0 10/01/20 07:30 97.4 97.4 Intake and Output 10/01/20 07:00 Intake Total 1950 ml Output Total 730 ml Balance 1220 ml Intake Oral 500 ml IV Total 1450 ml Output Urine Total 700 ml Estimated Blood Loss 30 ml Physical Exam General: Alert, Oriented X3, Cooperative, No acute distress MUSCULOSKELETAL: Other (CORDOVA) Neuro: Normal speech Skin: Other (dressing C,D,I) Assessment Assessment Problems Medical Problems: (1) Inability to walk Status: Acute Plan Plan of Care Continue rehab/PT may dc tomorrow from my standpoint she prefers vs SNF/ inpatient rehab Comment Review of Relevant I have reviewed the following items elizabeth (where applicable) has been applied. Medications Current Medications Acetaminophen/ Hydrocodone Bitart (Lortab 5/325) 1 tab 1X ONCE PO Last administered on 09/24/20at 20:23; Start 09/24/20 at 20:15; Stop 09/24/20 at 20:16; Status DC Acetaminophen/ Hydrocodone Bitart (Lortab 5/325) 1 tab PRN Q4HRS PRN PO PAIN Last administered on 10/01/20at 03:42; Start 09/25/20 at 00:45 Naproxen (Naprosyn) 250 mg 1X ONCE PO Last administered on 09/25/20at 01:34; Start 09/25/20 at 01:30; Stop 09/25/20 at 01:31; Status DC Gabapentin (Neurontin) 600 mg 1X ONCE PO Last administered on 09/25/20at 01:34; Start 09/25/20 at 01:30; Stop 09/25/20 at 01:31; Status DC Carbidopa/Levodopa (Sinemet 25/100) 1 tab 1X ONCE PO Last administered on 09/25/20at 01:34; Start 09/25/20 at 01:30; Stop 09/25/20 at 01:31; Status DC Aspirin (Aspirin Chewable) 81 mg DAILY PO Last administered on 10/01/20at 09:41; Start 09/25/20 at 11:00 Carbidopa/Levodopa (Sinemet 25/100) 1 tab 5XDAY PO Last administered on 09/26/20at 06:04; Start 09/25/20 at 14:00; Stop 09/26/20 at 06:16; Status DC Gabapentin (Neurontin) 300 mg 5XDAY PRN PO neuropathy Last administered on 09/25/20 11:15; Start 09/25/20 at 10:45; Stop 09/25/20 at 13:29; Status DC Levothyroxine Sodium (Synthroid) 75 mcg DAILY06 PO Last administered on 10/01/20at 05:45; Start 09/25/20 at 11:00 Lisinopril (Prinivil) 40 mg DAILY PO Last administered on 10/01/20at 09:41; Start 09/25/20 at 11:00 Metoprolol Succinate (Toprol Xl) 50 mg DAILY PO Last administered on 10/01/20 09:42; Start 09/25/20 at 11:00 Ropinirole HCl (Requip) 0.5 mg TID PO Last administered on 10/01/20 09:42; Start 09/25/20 at 14:00 Gabapentin (Neurontin) 300 mg PRN Q6HRS PRN PO NEUROPATHY SYMPTOMS Last administered on 09/29/20at 14:28; Start 09/25/20 at 13:30 Gabapentin (Neurontin) 600 mg QHS PO Last administered on 09/30/20at 20:53; Start 09/25/20 at 21:00 Naproxen (Naprosyn) 250 mg BIDWMEALS PO Last administered on 10/01/20 09:41; Start 09/25/20 at 17:00 Nicotine (Nicoderm Cq 21mg) 1 patch PRN DAILY PRN TD SMOKING CESSATION Last a dministered on 10/01/20at 05:51; Start 09/25/20 at 18:30 Carbidopa/Levodopa (Sinemet 25/100) 1 tab 0300,0700,1200,1700,2100 PO Last administered on 10/01/20at 07:00; Start 09/26/20 at 07:00 Morphine Sulfate (Morphine Sulfate) 2 mg PRN Q2HR PRN IVP SEVERE PAIN 7-10 Last administered on 09/27/20at 02:17; Start 09/26/20 at 23:45 Hydralazine HCl (Apresoline) 10 mg PRN Q8HRS PRN PO SBP greater than 160 Last administered on 09/30/20at 17:43; Start 09/26/20 at 23:45 Ringer's Solution 1,000 ml @ 50 mls/hr Q20H IV Last administered on 09/30/20at 09:11; Start 09/30/20 at 07:00; Stop 09/30/20 at 18:59; Status DC Dexamethasone (Decadron) 2 mg Q6HRS PO Last administered on 10/01/20at 05:45; Start 09/27/20 at 18:00 Pantoprazole Sodium (Protonix) 40 mg DAILYAC PO Last administered on 10/01/20at 05:45; Start 09/27/20 at 16:30 Cefazolin Sodium/ Dextrose 50 ml @ 100 mls/hr 1X PREOP PRN IV PRIOR TO PROCEDURE; Start 09/30/20 at 06:00; Stop 09/30/20 at 18:00; Status DC Cefazolin Sodium 1 gm/Sodium Chloride 1,000 ml @ 1,000 mls/hr 1X ONCE IRR Last administered on 09/30/20at 13:06; Start 09/30/20 at 08:00; Stop 09/30/20 at 08:59; Status DC Gelatin (Gelfoam Size 100) 1 each STK-MED ONCE .ROUTE Last administered on 09/30/20at 13:06; Start 09/30/20 at 07:29; Stop 09/30/20 at 07:29; Status DC Bupivacaine HCl/ Epinephrine Bitart (Sensorcain-Epi 0.5%-1:[id number] Mpf) 30 ml STK-MED ONCE .ROUTE Last administered on 09/30/20at 13:06; Start 09/30/20 at 07:29; Stop 09/30/20 at 07:29; Status DC Ketorolac Tromethamine (Toradol Im) 60 mg STK-MED ONCE .ROUTE Last administered on 09/30/20at 13:06; Start 09/30/20 at 07:29; Stop 09/30/20 at 07:29; Status DC Thrombin 20,000 unit STK-MED ONCE TP Last administered on 09/30/20at 13:06; Start 09/30/20 at 07:29; Stop 09/30/20 at 07:30; Status DC Fentanyl Citrate (Fentanyl 2ml Vial) 100 mcg STK-MED ONCE .ROUTE ; Start 09/30/20 at 09:59; Stop 09/30/20 at 09:59; Status DC Rocuronium [place] (Zemuron) 50 mg STK-MED ONCE .ROUTE ; Start 09/30/20 at 09:59; Stop 09/30/20 at 10:00; Status DC Remifentanil HCl (Ultiva) 2 mg STK-MED ONCE IV ; Start 09/30/20 at 09:59; Stop 09/30/20 at 10:00; Status DC Dexamethasone Sodium Phosphate (Decadron) 4 mg STK-MED ONCE .ROUTE ; Start 09/30/20 at 10:00; Stop 09/30/20 at 10:00; Status DC Ondansetron HCl (Zofran) 4 mg STK-MED ONCE .ROUTE ; Start 09/30/20 at 10:00; Stop 09/30/20 at 10:00; Status DC Propofol (Diprivan) 200 mg STK-MED ONCE IV ; Start 09/30/20 at 10:00; Stop 09/30/20 at 10:00; Status DC Lidocaine HCl (Lidocaine Pf 2% Vial) 5 ml STK-MED ONCE .ROUTE ; Start 09/30/20 at 10:00; Stop 09/30/20 at 10:00; Status DC Propofol 50 ml @ As Directed STK-MED ONCE IV ; Start 09/30/20 at 10:04; Stop 09/30/20 at 10:04; Status DC Midazolam HCl (Versed) 2 mg STK-MED ONCE .ROUTE ; Start 09/30/20 at 10:04; Stop 09/30/20 at 10:04; Status DC Ephedrine Sulfate (ePHEDrine PF IN SALINE SYRINGE) 50 mg STK-MED ONCE IV ; Start 09/30/20 at 13:02; Stop 09/30/20 at 13:02; Status DC Neostigmine [place] (Neostigmine Methylsulfate) 5 mg STK-MED ONCE .ROUTE ; Start 09/30/20 at 14:54; Stop 09/30/20 at 14:55; Status DC Fentanyl Citrate (Fentanyl 2ml Vial) 100 mcg STK-MED ONCE .ROUTE ; Start 09/30/20 at 15:25; Stop 09/30/20 at 15:25; Status DC Fentanyl Citrate (Fentanyl 2ml Vial) 25 mcg PRN Q5MIN PRN IVP MILD PAIN 1-3; Start 09/30/20 at 15:45; Stop 10/01/20 at 02:00; Status DC Fentanyl Citrate (Fentanyl 2ml Vial) 50 mcg PRN Q5MIN PRN IVP MODERATE PAIN 4-6 Last administered on 09/30/20at 15:40; Start 09/30/20 at 15:45; Stop 10/01/20 at 02:00; Status DC Morphine Sulfate (Morphine Sulfate) 1 mg PRN Q10MIN PRN IVP SEVERE PAIN 7-10 Last administered on 09/30/20at 16:16; Start 09/30/20 at 15:45; Stop 10/01/20 at 02:00; Status DC Ringer's Solution 1,000 ml @ 30 mls/hr Q24H IV ; Start 09/30/20 at 15:45; Stop 10/01/20 at 03:44; Status DC Hydromorphone HCl (Dilaudid) 0.5 mg PRN Q10MIN PRN IVP SEVERE PAIN 7-10, 2nd CHOICE; Start 09/30/20 at 15:45; Stop 10/01/20 at 02:00; Status DC Prochlorperazine Edisylate (Compazine) 5 mg PACU PRN PRN IVP NAUSEA, MRX1; Start 09/30/20 at 15:45; Stop 10/01/20 at 02:00; Status DC Active Scripts Active Reported Children's Aspirin (Aspirin) 81 Mg Tab.chew 1 Tab PO DAILY 30 Days Aleve (Naproxen Sodium) 220 Mg Capsule 220 Mg PO BID D3-50 (Cholecalciferol (Vitamin D3)) 50,000 Unit Capsule 2,000 Unit PO DAILY Megared [place]-3 Krill Oil Sfgl (Krill/Om-3/Dha/Epa/Phospho/Ast) 1 Each Capsule 1 Cap PO DAILY 30 Days Folic Acid 0.8 Mg Tablet 0.8 Mg PO DAILY B12 Active (Mecobalamin) 1,000 Mcg Tab.chew 500 Mcg PO DAILY Toprol XL (Metoprolol Succinate) 50 Mg Tab.er.24h 50 Mg PO DAILY Lisinopril 40 Mg Tablet 1 Tab PO DAILY Levothyroxine Sodium 75 Mcg Tablet 1 Tab PO DAILY Gabapentin (Gabapentin) 300 Mg Capsule 300 Mg PO 5XDAY PRN Carbidopa-Levodopa 25-100 Tab (Carbidopa/Levodopa) 1 Each Tablet 1 Tab PO 5XDAY 30 Days Ropinirole Hcl 0.5 Mg Tablet 0.5 Mg PO TID Vitals/I & O Vital Sign - Last 24 Hours 09/30/20 09/30/20 09/30/20 09/30/20 15:17 15:17 15:28 15:30 Temp 97.1 97.1 Pulse 74 70 Resp 16 16 24 B/P (MAP) 153/83 181/76 Pulse Ox 96 95 98 O2 Delivery Simple Mask Mask Simple Mask Nasal Cannula O2 Flow Rate 8 10 8.0 3 09/30/20 09/30/20 09/30/20 09/30/20 15:40 15:45 16:00 16:15 Temp 97.0 97.0 Pulse 63 62 61 Resp 16 16 16 18 B/P (MAP) 184/89 185/92 171/89 Pulse Ox 96 94 93 O2 Delivery Nasal Cannula Nasal Cannula Nasal Cannula O2 Flow Rate 3.0 2 2 09/30/20 09/30/20 09/30/20 09/30/20 16:16 16:45 17:00 17:15 Pulse 66 63 60 Resp 20 18 18 18 B/P (MAP) 191/88 (122) 196/93 (127) 198/96 (130) Pulse Ox 95 95 95 95 O2 Delivery Nasal Cannula Room Air Room Air Room Air O2 Flow Rate 2.0 09/30/20 09/30/20 09/30/20 09/30/20 17:30 17:43 17:45 18:15 Pulse 70 61 75 76 Resp 18 18 18 B/P (MAP) 171/89 168/143 (151) Pulse Ox 90 93 O2 Delivery Room Air Room Air Room Air 09/30/20 09/30/20 09/30/20 09/30/20 18:45 19:00 20:00 21:28 Temp 98.0 98.0 Pulse 78 65 Resp 18 18 20 B/P (MAP) 170/93 (118) 156/76 (102) Pulse Ox 89 97 92 O2 Delivery Room Air Room Air Room Air Room Air 09/30/20 10/01/20 10/01/20 10/01/20 23:00 03:16 03:42 04:12 Temp 97.0 98.1 97.0 98.1 Pulse 56 68 Resp 18 18 20 20 B/P (MAP) 148/88 (108) 138/72 (94) Pulse Ox 92 92 92 O2 Delivery Room Air Room Air Room Air Room Air 10/01/20 10/01/20 10/01/20 10/01/20 07:30 08:15 09:41 09:42 Temp 97.4 97.4 Pulse 64 64 64 Resp 18 B/P (MAP) 147/63 (91) 147/63 147/63 Pulse Ox 92 O2 Delivery Room Air Room Air O2 Flow Rate 2.0 10/01/20 10/01/20 11:00 12:46 Pulse 63 Resp 18 B/P (MAP) 150/55 (86) Pulse Ox 94 O2 Delivery Room Air Room Air Intake and Output 09/30/20 09/30/20 10/01/20 15:00 23:00 07:00 Intake Total 50 ml 1400 ml 500 ml Output Total 30 ml 700 ml Balance 50 ml 1370 ml -200 ml Justifications for Admission Other Justification BRI RODRIGUEZ MD Oct 01, 2020 13:08
[2020-10-01] MEDS: GABAPENTIN 300 MG CAPSULE. PO PRN (13:20)
[2020-10-01 15:00] VITALS: BP 133/58
[2020-10-01 18:59] VITALS: BP 156/63
[2020-10-01] MEDS: GABAPENTIN 300 MG CAPSULE. PO SCH (21:41)
[2020-10-01 23:00] VITALS: BP 165/74
[2020-10-02] MEDS: DEXAMETHASONE 1 MG TABLET PO SCH ×3 (00:43→12:16)
[2020-10-02 02:58] VITALS: BP 159/70
[2020-10-02] MEDS: CARBIDOPA/LEVODOPA 25/100MG TABLET PO SCH ×3 (03:14→12:16)
[2020-10-02] MEDS: LEVOTHYROXINE 75 MCG TABLET PO SCH (05:49)
[2020-10-02 07:00] VITALS: BP 166/84
--- NOTE | 2020-10-02 07:11 | PDOC ---
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 She has had 3 on her lumbar spine and 3 on her cervical spine. Now, she is having some falls with back pain. Admitted the patient and consult Neurosurgery. 09/25:Patient seen and examined to bedside. Says back pain is well controlled currently she just feels very unsteady on her feet. Awaiting neurosurgery consult. PT OT ordered. 09/26: No major complaints this morning. Neurosurgery recommending MRI evaluation, patient agreeable. PMR consulted 09/27: MRI yesterday showing severe spinal stenosis with T-9-10 severe compression and spinal cord signal change. Awaiting neurosurgery recommendations. 09/28: No acute events overnight. Patient seen and examined bedside. IV steroids and plan for laminectomy Wednesday. 09/29: Patient seen and examined at bedside. No major events overnight. Planning for laminectomy Wednesday. 09/30: Afebrile overnight. Minimal pain. N.p.o. for neurosurgery T9-10 laminectomy. 10/01: Afebrile. Can feel her legs again today. Getting her strength back. She wishes to go home with home health. Likely can attempt to do this on 10/02/2020 Afebrile overnight. No chest pain or shortness of breath. She is adamant about going home with home health has her cousin living with her. Discussed with PM&R Vitals/I&O Vitals/I&O: Vital Signs Date Time Temp Pulse Resp B/P (MAP) Pulse Ox O2 Delivery O2 Flow Rate FiO2 10/02/20 02:58 73 18 159/70 (99) 96 Room Air 2.0 10/01/20 23:00 97.5 97.5 I & O 10/01/20 10/01/20 10/02/20 15:00 23:00 07:00 Intake Total 100 ml Balance 100 ml Physical Exam General: Alert, Oriented X3, Cooperative, No acute distress Heart: Regular rate, Normal S1, Normal S2 Lungs: Clear Abdomen: Normal bowel sounds, Soft Extremities: No clubbing, No edema Skin: Other Assessment and Plan Assessmemt and Plan Problems Medical Problems: (1) Inability to walk Status: Acute Comment Review of Relevant I have reviewed the following items elizabeth (where applicable) has been applied. Justifications for Admission Other Justification JANE VELA MD Oct 02, 2020 07:11
[2020-10-02] MEDS ORDERED: DEXA1TAB PO (07:30)
[2020-10-02] MEDS ORDERED: PANT40TA77 PO (07:30)
--- NOTE | 2020-10-02 07:32 | SNU/HH DC ---
DISCHARGE WITH HOME HEALTH DISCHARGE INFORMATION: Discharge Date: Oct 02, 2020 Final Diagnosis: Problems Medical Problems: (1) Inability to walk Status: Acute Condition on Discharge: Stable CODE STATUS: Code Status: Full HOME HEALTH: Face to Face: I certify this patient is under my care and that I, or a nurse practitioner or physician's assistant professor of life sciences working with me, had a face to face encounter that meets the physician face to face encounter requirements with this patient on 10/02/20. Medical Complications: DJD, Other Assisted For: Assess & Educate Safety, Assess/Skilled Observatio, Medication Management, Pain Management RN For Eval/Treatment: Yes Physical Therapy For: Evalulation/Treatment Occupational Therapy For: Evaluation/Treatment Pt Meets Homebound Status: Unsteady balance w/ amb,, Extreme weakness w/ amb. POST DISCHARGE ORDERS: Activity Instructions for Disc: Resume previous activity Weight Bearing Status after Di: Full weight bearing Bathing Instructions: Shower-keep dressing dry, No Tub Bath until see DIET AFTER DISCHARGE: Regular Wound/Incision Care: Keep wound/cast CDI CHECKS AFTER DISCHARGE: Checks after discharge: Check blood press - daily CERTIFICATION STATEMENT: Certification Statement: Certification Statement: Based on the above finding, I certify that this patient is confined to the home and needs intermittent retirement care, physical therapy and/or speech therapy, or continues to need occupational therapy.~ This patient is under my care, and I have initiated the establishment of the plan of care.~ This patient will be followed by myself or a community physician who will periodically review the plan of care. Home Meds Active Scripts Dexamethasone (DEXAMETHASONE) 1 Mg Tablet, 2 MG PO Q6HRS for Myelitis for 3 Days, #24 TAB Prov:JANE VELA MD 10/02/20 Pantoprazole Sodium (PANTOPRAZOLE SODIUM ) 40 Mg Tablet.dr, 40 MG PO DAILYAC for GERD for 30 Days, #30 TAB.SR Prov:JANE VELA MD 10/02/20 Reported Medications Aspirin (Children's Aspirin) 81 Mg Tab.chew, 1 TAB PO DAILY for supplement for 30 Days, #30 TAB 0 Refills 09/25/20 Cholecalciferol (Vitamin D3) (D3-50) 50,000 Unit Capsule, 2000 UNIT PO DAILY for supplement, CAP 09/25/20 Krill/Om-3/Dha/Epa/Phospho/Ast (Megared [place]-3 Krill Oil Sfgl) 1 Each Capsule, 1 CAP PO DAILY for supplement for 30 Days, #30 CAP 0 Refills 09/25/20 Folic Acid (FOLIC ACID) 0.8 Mg Tablet, 0.8 MG PO DAILY for SUPPLEMENT, TAB 09/25/20 Mecobalamin (B12 Active) 1,000 Mcg Tab.chew, 500 MCG PO DAILY for supplement, TAB.CHEW 09/25/20 Metoprolol Succinate (Toprol XL) 50 Mg Tab.er.24h, 50 MG PO DAILY for FOR HYPERTENSION, TAB.SR 09/25/20 Lisinopril (LISINOPRIL) 40 Mg Tablet, 1 TAB PO DAILY for hypertension, #30 TAB 5 Refills 09/25/20 Levothyroxine Sodium (LEVOTHYROXINE SODIUM) 75 Mcg Tablet, 1 TAB PO DAILY for thyroid, #30 TAB 5 Refills 09/25/20 Gabapentin (GABAPENTIN ) 300 Mg Capsule, 300 MG PO 5XDAY PRN for neuropathy, CAP 09/25/20 Carbidopa/Levodopa (CARBIDOPA-LEVODOPA 25-100 TAB) 1 Each Tablet, 1 TAB PO 5XDAY for parkinsons for 30 Days, #150 TAB 0 Refills 09/25/20 Ropinirole Hcl (ROPINIROLE HCL) 0.5 Mg Tablet, 0.5 MG PO TID for restless leg, TAB 09/25/20 Discontinued Reported Medications Naproxen Sodium (ALEVE) 220 Mg Capsule, 220 MG PO BID for pain, CAP 09/25/20 JANE VELA MD Oct 02, 2020 07:32
[2020-10-02] MEDS: LISINOPRIL 20 MG TABLET PO SCH (09:22)
[2020-10-02] MEDS: PANTOPRAZOLE 40 MG TABLET.DR. PO SCH (09:23)
[2020-10-02] MEDS: rOPINIRole 0.25 MG TABLET. PO SCH (09:23)
[2020-10-02] MEDS: NAPROXEN 250 MG TABLET PO SCH (09:23)
[2020-10-02] MEDS: METOPROLOL SUCC 24HR ER 50 MG TAB.ER.24H. PO SCH (09:23)
[2020-10-02] MEDS: ASPIRIN CHEWABLE 81 MG TABLET. PO SCH (09:23)
--- NOTE | 2020-10-02 09:42 | PDOC ---
PROGRESS NOTES Date of Service DATE: 10/02/20 TIME: 09:38 Subjective Subjective No new complaints. Objective Objective Vital Signs Date Time Temp Pulse Resp B/P (MAP) Pulse Ox O2 Delivery O2 Flow Rate FiO2 10/02/20 09:23 63 166/84 10/02/20 07:00 97.8 18 96 Room Air 2.0 97.8 Intake and Output 10/02/20 07:00 Intake Total 100 ml Balance 100 ml Intake Oral 100 ml # Voids 4 Physical Exam Physical Exam She is sitting at edge of bed and seems to be comfortable and physical therapy recommends transfer to rehab unit. Patient wants to go home and made arrangements for her family being with her and she feels she will have help as needed at home. Assessment Assessment Problems Medical Problems: (1) Inability to walk Status: Acute Plan Plan of Care To arrange for home health physical and occupational therapy follow up when medically stable to go home. Comment Review of Relevant I have reviewed the following items elizabeth (where applicable) has been applied. Medications Current Medications Acetaminophen/ Hydrocodone Bitart (Lortab 5/325) 1 tab 1X ONCE PO Last administered on 09/24/20at 20:23; Start 09/24/20 at 20:15; Stop 09/24/20 at 20:16; Status DC Acetaminophen/ Hydrocodone Bitart (Lortab 5/325) 1 tab PRN Q4HRS PRN PO PAIN Last administered on 10/01/20at 21:42; Start 09/25/20 at 00:45 Naproxen (Naprosyn) 250 mg 1X ONCE PO Last administered on 09/25/20at 01:34; Start 09/25/20 at 01:30; Stop 09/25/20 at 01:31; Status DC Gabapentin (Neurontin) 600 mg 1X ONCE PO Last administered on 09/25/20at 01:34; Start 09/25/20 at 01:30; Stop 09/25/20 at 01:31; Status DC Carbidopa/Levodopa (Sinemet 25/100) 1 tab 1X ONCE PO Last administered on 09/25/20at 01:34; Start 09/25/20 at 01:30; Stop 09/25/20 at 01:31; Status DC Aspirin (Aspirin Chewable) 81 mg DAILY PO Last administered on 10/02/20at 09:23; Start 09/25/20 at 11:00 Carbidopa/Levodopa (Sinemet 25/100) 1 tab 5XDAY PO Last administered on 09/26/20at 06:04; Start 09/25/20 at 14:00; Stop 09/26/20 at 06:16; Status DC Gabapentin (Neurontin) 300 mg 5XDAY PRN PO neuropathy Last administered on 09/25/20at 11:15; Start 09/25/20 at 10:45; Stop 09/25/20 at 13:29; Status DC Levothyroxine Sodium (Synthroid) 75 mcg DAILY06 PO Last administered on 10/02/20 05:49; Start 09/25/20 at 11:00 Lisinopril (Prinivil) 40 mg DAILY PO Last administered on 10/02/20 09:22; Start 09/25/20 at 11:00 Metoprolol Succinate (Toprol Xl) 50 mg DAILY PO Last administered on 10/02/20 09:23; Start 09/25/20 at 11:00 Ropinirole HCl (Requip) 0.5 mg TID PO Last administered on 10/02/20 09:23; Start 09/25/20 at 14:00 Gabapentin (Neurontin) 300 mg PRN Q6HRS PRN PO NEUROPATHY SYMPTOMS Last administered on 10/01/20 13:20; Start 09/25/20 at 13:30 Gabapentin (Neurontin) 600 mg QHS PO Last administered on 10/01/20at 21:41; Start 09/25/20 at 21:00 Naproxen (Naprosyn) 250 mg BIDWMEALS PO Last administered on 10/02/20 09:23; Start 09/25/20 at 17:00 Nicotine (Nicoderm Cq 21mg) 1 patch PRN DAILY PRN TD SMOKING CESSATION Last administered on 10/01/20at 05:51; Start 09/25/20 at 18:30 Carbidopa/Levodopa (Sinemet 25/100) 1 tab 0300,0700,1200,1700,2100 PO Last administered on 10/02/20at 06:49; Start 09/26/20 at 07:00 Morphine Sulfate (Morphine Sulfate) 2 mg PRN Q2HR PRN IVP SEVERE PAIN 7-10 Last administered on 09/27/20at 02:17; Start 09/26/20 at 23:45 Hydralazine HCl (Apresoline) 10 mg PRN Q8HRS PRN PO SBP greater than 160 Last administered on 09/30/20at 17:43; Start 09/26/20 at 23:45 Ringer's Solution 1,000 ml @ 50 mls/hr Q20H IV Last administered on 09/30/20at 09:11; Start 09/30/20 at 07:00; Stop 09/30/20 at 18:59; Status DC Dexamethasone (Decadron) 2 mg Q6HRS PO Last administered on 10/02/20at 05:49; Start 09/27/20 at 18:00 Pantoprazole Sodium (Protonix) 40 mg DAILYAC PO Last administered on 10/02/20at 09:23; Start 09/27/20 at 16:30 Cefazolin Sodium/ Dextrose 50 ml @ 100 mls/hr 1X PREOP PRN IV PRIOR TO PROCEDURE; Start 09/30/20 at 06:00; Stop 09/30/20 at 18:00; Status DC Cefazolin Sodium 1 gm/Sodium Chloride 1,000 ml @ 1,000 mls/hr 1X ONCE IRR Last administered on 09/30/20at 13:06; Start 09/30/20 at 08:00; Stop 09/30/20 at 08:59; Status DC Gelatin (Gelfoam Size 100) 1 each STK-MED ONCE .ROUTE Last administered on 09/30/20 13:06; Start 09/30/20 at 07:29; Stop 09/30/20 at 07:29; Status DC Bupivacaine HCl/ Epinephrine Bitart (Sensorcain-Epi 0.5%-1:404436 Mpf) 30 ml STK-MED ONCE .ROUTE Last administered on 09/30/20 13:06; Start 09/30/20 at 07: 29; Stop 09/30/20 at 07:29; Status DC Ketorolac Tromethamine (Toradol Im) 60 mg STK-MED ONCE .ROUTE Last administered on 09/30/20 13:06; Start 09/30/20 at 07:29; Stop 09/30/20 at 07:29; Status DC Thrombin 20,000 unit STK-MED ONCE TP Last administered on 09/30/20 13:06; Start 09/30/20 at 07:29; Stop 09/30/20 at 07:30; Status DC Fentanyl Citrate (Fentanyl 2ml Vial) 100 mcg STK-MED ONCE .ROUTE ; Start 09/30/20 at 09:59; Stop 09/30/20 at 09:59; Status DC Rocuronium [place]anan (Zemuron) 50 mg STK-MED ONCE .ROUTE ; Start 09/30/20 at 09:59; Stop 09/30/20 at 10:00; Status DC Remifentanil HCl (Ultiva) 2 mg STK-MED ONCE IV ; Start 09/30/20 at 09:59; Stop 09/30/20 at 10:00; Status DC Dexamethasone Sodium Phosphate (Decadron) 4 mg STK-MED ONCE .ROUTE ; Start 09/15 08/05 at 10:00; Stop 09/30/20 at 10:00; Status DC Ondansetron HCl (Zofran) 4 mg STK-MED ONCE .ROUTE ; Start 09/30/20 at 10:00; Stop 09/30/20 at 10:00; Status DC Propofol (Diprivan) 200 mg STK-MED ONCE IV ; Start 09/30/20 at 10:00; Stop 09/30/20 at 10:00; Status DC Lidocaine HCl (Lidocaine Pf 2% Vial) 5 ml STK-MED ONCE .ROUTE ; Start 09/30/20 at 10:00; Stop 09/30/20 at 10:00; Status DC Propofol 50 ml @ As Directed STK-MED ONCE IV ; Start 09/30/20 at 10:04; Stop 09/30/20 at 10:04; Status DC Midazolam HCl (Versed) 2 mg STK-MED ONCE .ROUTE ; Start 09/30/20 at 10:04; Stop 09/30/20 at 10:04; Status DC Ephedrine Sulfate (ePHEDrine PF IN SALINE SYRINGE) 50 mg STK-MED ONCE IV ; Start 09/30/20 at 13:02; Stop 09/30/20 at 13:02; Status DC Neostigmine [place]anan (Neostigmine Methylsulfate) 5 mg STK-MED ONCE .ROUTE ; Start 09/30/20 at 14:54; Stop 09/30/20 at 14:55; Status DC Fentanyl Citrate (Fentanyl 2ml Vial) 100 mcg STK-MED ONCE .ROUTE ; Start 09/30/20 at 15:25; Stop 09/30/20 at 15:25; Status DC Fentanyl Citrate (Fentanyl 2ml Vial) 25 mcg PRN Q5MIN PRN IVP MILD PAIN 1-3; Start 09/30/20 at 15:45; Stop 10/01/20 at 02:00; Status DC Fentanyl Citrate (Fentanyl 2ml Vial) 50 mcg PRN Q5MIN PRN IVP MODERATE PAIN 4-6 Last administered on 09/30/20at 15:40; Start 09/30/20 at 15:45; Stop 10/01/20 at 02:00; Status DC Morphine Sulfate (Morphine Sulfate) 1 mg PRN Q10MIN PRN IVP SEVERE PAIN 7-10 Last administered on 09/30/20at 16:16; Start 09/30/20 at 15:45; Stop 10/01/20 at 02:00; Status DC Ringer's Solution 1,000 ml @ 30 mls/hr Q24H IV ; Start 09/30/20 at 15:45; Stop 10/01/20 at 03:44; Status DC Hydromorphone HCl (Dilaudid) 0.5 mg PRN Q10MIN PRN IVP SEVERE PAIN 7-10, 2nd CHOICE; Start 09/30/20 at 15:45; Stop 10/01/20 at 02:00; Status DC Prochlorperazine Edisylate (Compazine) 5 mg PACU PRN PRN IVP NAUSEA, MRX1; Start 09/30/20 at 15:45; Stop 10/01/20 at 02:00; Status DC Active Scripts Active Dexamethasone 1 Mg Tablet 2 Mg PO Q6HRS 3 Days Pantoprazole Sodium (Pantoprazole Sodium) 40 Mg Tablet.dr 40 Mg PO DAILYAC 30 Days Reported Children's Aspirin (Aspirin) 81 Mg Tab.chew 1 Tab PO DAILY 30 Days D3-50 (Cholecalciferol (Vitamin D3)) 50,000 Unit Capsule 2,000 Unit PO DAILY Megared [place]-3 Krill Oil Sfgl (Krill/Om-3/Dha/Epa/Phospho/Ast) 1 Each Capsule 1 Cap PO DAILY 30 Days Folic Acid 0.8 Mg Tablet 0.8 Mg PO DAILY B12 Active (Mecobalamin) 1,000 Mcg Tab.chew 500 Mcg PO DAILY Toprol XL (Metoprolol Succinate) 50 Mg Tab.er.24h 50 Mg PO DAILY Lisinopril 40 Mg Tablet 1 Tab PO DAILY Levothyroxine Sodium 75 Mcg Tablet 1 Tab PO DAILY Gabapentin (Gabapentin) 300 Mg Capsule 300 Mg PO 5XDAY PRN Carbidopa-Levodopa 25-100 Tab (Carbidopa/Levodopa) 1 Each Tablet 1 Tab PO 5XDAY 30 Days Ropinirole Hcl 0.5 Mg Tablet 0.5 Mg PO TID Vitals/I & O Vital Sign - Last 24 Hours 10/01/20 10/01/20 10/01/20 10/01/20 09:41 09:42 11:00 12:46 Pulse 64 64 63 Resp 18 B/P (MAP) 147/63 147/63 150/55 (86) Pulse Ox 94 O2 Delivery Room Air Room Air 10/01/20 10/01/20 10/01/20 10/01/20 14:35 15:00 15:14 18:59 Temp 98.0 97.9 98.0 97.9 Pulse 66 66 Resp 18 18 B/P (MAP) 133/58 (83) 156/63 (94) Pulse Ox 96 96 O2 Delivery Room Air Room Air Room Air Room Air 10/01/20 10/01/20 10/01/20 10/01/20 20:05 21:42 22:12 23:00 Temp 97.5 97.5 Pulse 63 Resp 18 B/P (MAP) 165/74 (104) Pulse Ox 96 96 O2 Delivery Room Air Room Air Room Air Room Air O2 Flow Rate 2.0 2.0 2.0 10/02/20 10/02/20 10/02/20 10/02/20 02:58 07:00 09:22 09:23 Temp 97.8 97.8 Pulse 73 63 63 63 Resp 18 18 B/P (MAP) 159/70 (99) 166/84 (111) 166/84 166/84 Pulse Ox 96 96 O2 Delivery Room Air Room Air O2 Flow Rate 2.0 2.0 Intake and Output 10/01/20 10/01/20 10/02/20 15:00 23:00 07:00 Intake Total 100 ml Balance 100 ml Justifications for Admission Other Justification FELIX MATUTE MD Oct 02, 2020 09:42
[2020-10-02] MEDS: NICOTINE 21MG PATCH. TD PRN (10:43)
[2020-10-02 10:55] VITALS: BP 153/74
[2020-10-02] MEDS: GABAPENTIN 300 MG CAPSULE. PO PRN (12:17)
--- NOTE | 2020-10-02 12:20 | NUR ---
SW following. Discussed with RN, pt spoke with Tiff Perez RN and would like to go home with home health. Discharge order for home with home health. Tiff Perez RN aware and has discharge orders. No further SW needs. RN aware.
--- NOTE | 2020-10-02 13:56 | NUR ---
Patient discharge home with [facility] today, via wheelchair accompanied by this RN. Patient is stable, IV removed, prescriptions, discharge paperwork, and patient valuable from security were returned. Patient verbalized understanding of followup and discharge instruction.
--- NOTE | 2020-10-04 14:09 | PATHOLOGY ---
[facility] Accession Number: [id number] . 01 Material submitted: . vertebral column - THORACIC DECOMPRESSION . 01 Clinical history: . BACK PAIN, FREQUENT FALLS, WEAK LEGS, INABILITY TO WALK THORACIC LAMINECTOMY T8-9-10 . 02 Diagnosis: Segments of fibrocartilaginous and skeletal muscle tissue and bone, thoracic decompression: - Degenerative changes of fibrocartilaginous tissue. . ([facility]:mm; 10/04/2020) [facility] 10/04/2020 0952 Local . 02 Comment: There is no evidence of an acute inflammatory process or malignancy. . ([facility]:mml; 10/04/2020) . 02 Electronically signed: . Francisco Jensen MD, Pathologist NPI- [id number] . 01 Gross description: . The specimen is received in formalin, labeled "Soha Waldron and #1 thoracic decompression". It consists of multiple shukla irregular bony and soft tissue fragments measuring 3.2 x 0.0 x 1.8 cm in aggregate. Canvas Cutter Machine sections are submitted in A1 following decalcification. (MRF; 10/01/2020) [facility] 10/01/2020 2147 Local . 02 Pathologist provided ICD-10: M51.34 . 02 CPT . 245224, 162011 Specimen Comment: A courtesy copy of this report has been sent to [phone], [phone] Specimen Comment: [id number], Specimen Comment: Report sent to , DR LOTT / DR CURRIE Performed at: [address], [place], [place] [id number] MD Anderson Collins MD Phone: [phone] Performed at: 02 [facility] [address], [place] [id number] MD Francisco Jensen MD Phone: [phone]
--- NOTE | 2020-10-07 13:48 | OP ---
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 OPERATION PERFORMED: Thoracic laminectomy T8-9, T9-10 with decompression of spinal cord. SURGEON: Gwyn Weinstein M.D. SENIOR HEALTH PHYSICS TECHNICIAN: Leigh Owens APRN, who assisted with the exposure, the decompression as well as the closure. SPECIMEN: Decompression. OPERATIVE INDICATIONS: The patient is a pleasant 80-year-old who developed problems with gait and weakness in her lower extremities along with back pain, which would radiate into her lower extremities. On imaging studies, she had severe spinal stenosis at T9-10 and slightly less severe stenosis at T8-9. In the past she has had problems below this region with a laminectomy performed at T10-11. At any rate, because of the severe stenosis, I recommended a thoracic laminectomy. I spoke with her about the surgery and the risks involved. She understood and she wished to go ahead. DESCRIPTION OF PROCEDURE: Following general endotracheal anesthesia, the patient was positioned prone on the Salvador table. Lumbar region prepped and draped in the standard fashion. MAGGI hose and AV impulse boots were applied for DVT prophylaxis. A microscope was draped, fluoroscopy was draped and brought in the field. Monitoring was established. Ancef 2 grams given less than one hour prior to initiation of the surgery. Using fluoroscopic guidance, an incision was made from T7-T10-11. I dissected down through skin and subcutaneous tissue and reflected the paraspinal muscles and placed self-retaining retractors and brought in the microscope and the remainder of the surgery was done with a microscope using microscopic technique. Bringing in the high-speed air drill along with a Leksell and Adson rongeurs, I trimmed the spinous processes of T8, T9, and T10. I then used the conical bur to shave down the bone and thin the bone of the T8, T9, and 10 lamina. I then switched to a matchstick type bur and drilled 2 troughs, one extending from superior to T8 to inferior T10 on the left side and then followed this with a trough on the right side and then once the lamina were free laterally, I just gently worked and lifted away the lamina as a single unit. I used Kerrisons and worked our way within the exposure and fully decompressed the entire region. The spinal cord was markedly compressed and this was completely relieved by the surgery. At this point, then I did use small amounts of bone wax as well as the bipolar cautery and obtained excellent hemostasis. I irrigated copiously with antibiotic solution. I closed the wound then in layers with absorbable suture and the skin was closed with skin ruben. I felt the surgery went very well. The monitoring was stable throughout. Again, I was quite pleased with the surgery. FRANCINE/TRACY DR: Zo TID: [id number] GOSIA
== END 2020-10-02 13:59 | disposition home health service (06) | DRG 519 ==
LOC: ER 15:21 → 4 NORTH 19:01 → OBSVTOIN 09-26 14:45
PROVIDERS: ADMIT Internal Medicine; ATTEND Internal Medicine
PROC: 00NX0ZZ Release Thoracic Spinal Cord, Open Approach (ICD-10-PCS; principal; 2020-09-30 12:00)
DX: M48.04 Spinal stenosis, thoracic region (principal); G99.2 Myelopathy in diseases classified elsewhere; M48.02 Spinal stenosis, cervical region; M48.061 Spinal stenosis, lumbar region without neurogenic claudication; E03.9 Hypothyroidism, unspecified; G20 Parkinson's disease; I10 Essential (primary) hypertension; I71.4 Abdominal aortic aneurysm, without rupture; M50.30 Other cervical disc degeneration, unspecified cervical region; R29.6 Repeated falls; Z83.3 Family history of diabetes mellitus; G89.29 Other chronic pain; Z20.822 Contact with and (suspected) exposure to COVID-19; S73.101A Unspecified sprain of right hip, initial encounter; W18.39XA Other fall on same level, initial encounter; Y93.89 Activity, other specified; Y92.89 Other specified places as the place of occurrence of the external cause; Y99.8 Other external cause status
CPT/HCPCS: 36415; 72128; 72131; 72146; 72148; 76000; 80053; 84484; 85025; 85610; 88304; 88311; 93005; 94760; A4213; A4364; A4930; A6254; A6258; G0238; G0378; G0379; J0690; J1100; J1885; J2270; J2405; J2704; J2710; J3010; J7030; J7120; U0003; U0005; 97110-GP; 97116-GP; 97530-GO; 97530-GP; 97535-GO; 99285-25

== ENCOUNTER 2021-06-05 10:36 | Emergency (ER) | payer MEDICARE ==
[~2021-06-05] VITALS: Ht 149.9 cm; Wt 59.1 kg
[~2021-06-05 10:36] MED LIST: ASPI81TA59 PO; CARB1TAB22 PO; CHOL500021 PO; DEXA1TAB PO; FOLI0.8T5 PO; GABA300C18 PO; KRIL1CAP40 PO; LEVO75TA5 PO; LISI-130 PO; MECO10005 PO; METO50TA4 PO; NAPR220C4 PO; PANT40TA77 PO; ROPI0.5T4 PO
[2021-06-05 13:50] VITALS: BP 113/87
--- NOTE | 2021-06-05 13:54 | PHYS DOC ---
Past Medical History Additional Past Medical Histor: PARKINSONS, NEUROPATHY Past Surgical History: Cholecystectomy, Tonsillectomy, Other Additional Past Surgical Histo: MULTIPLE BACK SX Smoking Status: Current Every Day Smoker Additional Information: 1pk/day Alcohol Use: None General Adult EDM: Chief Complaint: DIZZY/LIGHT HEADED HPI: HPI: Patient is a 80 year old reports increased resting tremors. Patient has a history of Parkinson's disease and is being followed by a neurologist. Patient states her last appointment with a neurologist was approximately 1 month ago. Patient states that has made ambulation difficult. Review of Systems: Review of Systems: Constitutional: Denies fever or chills. [] Eyes: Denies change in visual acuity. [] HENT: Denies nasal congestion or sore throat. [] Respiratory: Denies cough or shortness of breath. [] Cardiovascular: Denies chest pain or edema. [] GI: Denies abdominal pain, nausea, vomiting, bloody stools or diarrhea. [] : Denies dysuria. [] Musculoskeletal: Denies back pain or joint pain. [] Integument: Denies rash. [] Neurologic: Resting tremor denies headache, focal weakness or sensory changes. [] Endocrine: Denies polyuria or polydipsia. [] Lymphatic: Denies swollen glands. [] Psychiatric: Denies depression or anxiety. [] Heart Score: C/O Chest Pain: No Risk Factors: Risk Factors: DM, Current or recent (<one month) smoker, HTN, HLP, family history of CAD, obesity. Risk Scores: Score 0 - 3: 2.5% MACE over next 6 weeks - Discharge Home Score 4 - 6: 20.3% MACE over next 6 weeks - Admit for Clinical Observation Score 7 - 10: 72.7% MACE over next 6 weeks - Early Invasive Strategies Current Medications: Current Medications Medications (Trade) Dose Ordered Sig/Sury Start Time Stop Time Status Last Admin Dose Admin Lorazepam (Ativan Inj) 1 mg 1X ONCE 06/05/21 11:45 06/05/21 11:46 DC 06/05/21 11:53 1 MG Ropinirole HCl (Requip) 1 mg TID 06/05/21 14:00 Allergies: Allergies: Allergies Coded Allergies Type Severity Reaction Last Updated Verified No Known Drug Allergies 09/24/20 No Physical Exam: PE: Constitutional: Well developed, well nourished, no acute distress, non-toxic appearance. [] HENT: Normocephalic, atraumatic, bilateral external ears normal, oropharynx moist, no oral exudates, nose normal. [] Eyes: PERRLA, EOMI, conjunctiva normal, no discharge. [] Neck: Normal range of motion, no tenderness, supple, no stridor. [] Cardiovascular:Heart rate regular rhythm, no murmur [] Lungs & Thorax: Bilateral breath sounds clear to auscultation [] Abdomen: Bowel sounds normal, soft, no tenderness, no masses, no pulsatile masses. [] Skin: Warm, dry, no erythema, no rash. [] Back: No tenderness, no CVA tenderness. [] Extremities: No tenderness, no cyanosis, no clubbing, ROM intact, no edema. [] Neurologic: Patient has a resting tremor worse in the left lower extremity. Alert and oriented X 3, normal motor function, normal sensory function, no focal deficits noted. [] Psychologic: Affect normal, judgement normal, mood normal. [] Current Patient Data: Vital Signs: Vital Signs Date Time Temp Pulse Resp B/P (MAP) Pulse Ox O2 Delivery O2 Flow Rate FiO2 06/05/21 11:34 94 24 216/103 (140) 97 Room Air 06/05/21 10:40 98.7 98.7 EKG: EKG: [] Radiology/Procedures: Radiology/Procedures: [] Course & Med Decision Making: Course & Med Decision Making Pertinent Labs and Imaging studies reviewed. (See chart for details) [] Discussed the case with patient's neurologist Dr. Ferguson. Patient's propanolol to be increased from 0.5 to 1 mg per dose. Patient will follow-up in the outpatient setting. Per neurology no need for admission. Sister had voiced her worry that the patient lives at home. I offered patient admission and possible placement, the patient adamantly refuses understands risks and benefits. Patient is AAO x3 and answering questions appropriately. Dragon Disclaimer: Dragon Disclaimer: This electronic medical record was generated, in whole or in part, using a voice recognition dictation system. Departure Departure Referrals: FESTUS CURRIE DO (PCP) CHRISTO BROOKS DO Jun 05, 2021 13:54
[2021-06-05] MEDS ORDERED: rOPINIRole 1 MG TABLET. PO SCH (14:00)
--- NOTE | 2021-06-05 14:35 | EKG ---
[address] [place] [address] Test Date: 2021-06-05 Test Time: 10:55:16 Pat Name: MENG LOJA Department: Room: Gender: F Health Unit Coordinator: : 1940 Requested By: CHRISTO BROOKS Order Number: [id number] Reading MD: Measurements Intervals Schurz Rate: 98 P: CO: QRS: -28 QRSD: 68 T: 34 QT: 348 QTc: 446 Interpretive Statements IRREGULAR RHYTHM, NO P-WAVE FOUND VENTRICULAR PREMATURE COMPLEX(ES) LEFTWARD AXIS ABNORMAL ECG RI6.02 No previous ECG available for comparison
== END 2021-06-05 14:20 | disposition home or self-care (01) ==
LOC: ER 10:36
DX: R25.1 Tremor, unspecified (principal); G20 Parkinson's disease; F17.200 Nicotine dependence, unspecified, uncomplicated
CPT/HCPCS: 93005; 96372; 99285; J2060

== ENCOUNTER → 2021-07-07 | Outpatient (CLI) | payer MEDICARE ==
--- NOTE | 2021-07-07 13:29 | KCIC ---
MR LUMBAR SPINE WO [id number] Date: 07/07/2021 10:55 AM Indication: BLE WEKANESS AND NUMBNESS/IMBALANCE. Pt states 6 prior lumbar surgeries. LBP, BLE weakne ss, frequent falls. Comparison: 09/26/2020. Technique: Multi-planar multi-weighted magnetic resonance imaging of the lumbar spine was performed w ithout intravenous contrast using the standard lumbar spine protocol. FINDINGS: Left convex lumbar curvature. No acute fracture. Advanced multilevel degenerative disc desiccation an d disc height loss. Multilevel sclerotic degenerative endplate changes. Degenerative endplate edema a t T8-9 and T9-10. The conus terminates at a normal level. Abnormal spinal cord signal and volume loss at T10-11 consist ent with myelomalacia. Prior posterior decompression at T10-11. No clumping of intrathecal nerve root s. Partial visualization of the patient's previously described infrarenal abdominal aortic aneurysm. T10-T11: Posterior decompression. Mild right moderate left facet arthropathy. No spinal canal stenosi s. Mild right and moderate left neuroforaminal narrowing. T11-T12: Disc bulge. Moderate facet arthropathy. Mild spinal canal stenosis. Mild neural foraminal na rrowing. T12-L1: Disc bulge. Severe right and moderate left facet arthropathy. Ligamentum flavum thickening. M ild to moderate spinal canal stenosis. Moderate right mild left neural foraminal narrowing.. L1-L2: Disc bulge. Moderate facet arthropathy. Moderate right and mild left neural foraminal narrowin g. Mild spinal canal stenosis. L2-L3: Disc bulge. Moderate facet arthropathy. Ligamentous flavum thickening. Mild spinal canal steno sis. Lvba-tw-yayuzwve bilateral neural foraminal narrowing. L3-L4: Posterior decompression. Moderate to severe facet arthropathy. No spinal canal stenosis. Mild lateral recess narrowing. Mild bilateral neural foraminal narrowing. L4-L5: Disc bulge. Severe facet arthropathy. Ligamentum flavum thickening. Moderate to severe spinal canal stenosis, progressed from the prior. Moderate to severe left neural foraminal narrowing is prog ressed, moderate right foraminal narrowing is stable. L5-S1: Disc bulge right lateral protrusion. Severe facet arthropathy. Moderate spinal stenosis. Sever e bilateral neural foraminal narrowing. IMPRESSION: Advanced lumbar spondylosis, progressed at L4-5 since exam of 09/26/2020. Remaining levels are not sig nificantly changed. Electronically signed by: Nicanor Ventura MD (07/07/2021 1:26 PM) [facility]
== END ==
LOC: KCIC MRI 10:13
PROVIDERS: ATTEND Nurse Practitioner Family
DX: M47.815 Spondylosis without myelopathy or radiculopathy, thoracolumbar region (principal); M47.817 Spondylosis without myelopathy or radiculopathy, lumbosacral region; M51.25 Other intervertebral disc displacement, thoracolumbar region; M51.27 Other intervertebral disc displacement, lumbosacral region; M48.07 Spinal stenosis, lumbosacral region; M48.05 Spinal stenosis, thoracolumbar region; I71.4 Abdominal aortic aneurysm, without rupture; R26.89 Other abnormalities of gait and mobility; R29.898 Other symptoms and signs involving the musculoskeletal system; R20.0 Anesthesia of skin
CPT/HCPCS: 72148